=== PATIENT | female | born 1995 | race Caucasian/White ===

== ENCOUNTER 2024-01-22 11:58 | Emergency (ER) | payer SELFPAY ==
[2024-01-22 11:58] VITALS: BP 133/76; PULSE 73; RESP 16; TEMP 36.4; O2SAT 98; BMI 45.0
--- NOTE | 2024-01-22 12:16 | EDS_ITS ---
HPI History of Present Illness Chief Complaint: Back Detail of Chief Complaint: Back pain Informant: patient Narrative Narrative: Patient presents to the emergency department complaint of back pain that started 4 to 5 days ago. She denied any injury. Initially pain was more mild in her low back and then she slipped at work and, caught herself but since then she has been having more discomfort. Pain worse with movement. Denies any falls or trauma otherwise. 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 She denies loss of bowel or bladder function. She denies urinary symptoms. She denies recent illness. PFSH PFS Medical History no medical history Home Medications cyclobenzaprine 10 mg tablet 10 mg PO TID PRN Muscle Spasm #20 TABLETS 01/22/24 [Rx Last Taken Unknown] hydrocodone-acetaminophen 5-325mg 5mg-325mg 1 tab PO Q4H PRN PRN Pain 2 days #10 TABLETS 01/22/24 [Rx Last Taken Unknown] Allergy/AdvReac Type Severity Reaction Status Date / Time bee venom protein (honey bee) Allergy Mild Swelling Verified 01/22/24 12:00 bupropion [From Wellbutrin] Allergy Mild Other Verified 01/22/24 12:00 Social History Smoking Status: Never smoker ROS ROS ED Review of Systems ROS Unobtainable: other Constitutional Constitutional ED: Reports lethargy; Denies chills, fever(s), sweats or weight loss Eyes Eyes: Denies blurry vision, change in vision or diplopia ENT ENT ED: Denies rhinorrhea or sore throat Cardiovascular Cardiovascular: Denies chest pain, orthopnea or racing heartbeat Respiratory/Chest Respiratory/Chest: Denies cough, dyspnea, dyspnea on exertion, orthopnea or sputum Gastrointestinal Gastrointestinal: Denies abdominal pain, diarrhea, nausea or vomiting Genitourinary Genitourinary ED: Denies dysuria, hematuria or urinary frequency Musculoskeletal Musculoskeletal: Reports back pain; Denies arthralgias, myalgias or neck pain Integumentary Denies abscess, Abrasions or rash Neurologic Neurologic: Denies headache(s) or weakness Psychiatric Psychiatric: Denies anxiety, depression or suicidal thoughts Endocrine Endocrinology: Denies polydipsia, polyphagia or polyuria Hematologic/Lymphatic Hematologic/Lymphatic: Denies easy bleeding, easy bruising or lymphadenopathy Allergic/Immunologic Allergic/Immunologic ED: Denies mouth swelling, tongue swelling or urticaria EXAM Physical Exam Const Vital Signs: 01/22/24 11:58 01/22/24 13:01 Temperature 97.5 F L 98 F Temperature Source Temporal Pulse Rate 73 78 Respiratory Rate 16 16 Blood Pressure 133/76 H 126/79 H Blood Pressure Mean 95 94 Pulse Ox 98 98 Oxygen Delivery Method Room Air Positive well nourished and well developed General Appearance ED: well developed and NAD HEENT Reports TM's clear and moist mucous membranes normocephalic and atraumatic; Negative for trauma or tenderness Tympanic Membrane ED: Yes TM's clear Eyes PERRL and EOMs intact bilaterally General Eye ED: Negative for pale conjunctiva or scleral icterus Neck no lymphadenopathy, supple and no JVD General: Negative for tenderness Chest Wall inspection of chest normal and palpation of chest normal Chest: Negative for tenderness Resp normal respiratory effort and clear to auscultation bilaterally Effort and Inspection: Negative for respiratory distress or pain with movement Auscultation: Negative for rhonchi, wheezes or diminished lung sounds Cardio regular rate, regular rhythm, S1 normal heart sound, S2 normal heart sound and no murmurs Peripheral Pulses: pulses 2+ throughout GI normal to inspection, nondistended, normoactive bowel sounds, soft to palpation, non-tender, non-distended and no masses Back/Spine no CVA tenderness and no thoracic nor lumbar tenderness Back/Spine Narrative: No bony tenderness on exam. She has some tenderness palpation over lower lumbar paraspinal musculature and into the PSIS joints and SI joints. Some tenderness over the gluteus molly bilaterally. She has negative straight leg raises. Deep tendon reflexes are plus 2 out of 4 bilaterally at the patella and Achilles. She has normal L5 extension. She has normal sensation to light touch. Extremity normal to inspection General Extremety ED: Negative for edema General Extremity: Negative for edema Neuro oriented x3, CN's II-XII intact bilaterally, no sensory deficits noted and gait normal Sensorium / Orientation: awake, alert, oriented to person, oriented to place and oriented to time Motor Exam: strength 5/5 throughout and strength abnormal Psych mental status grossly normal Skin no rashes or lesions noted and no wounds MDM MDM MDM Narrative Medical decision making narrative: Patient presents with atraumatic back pain that is worse with motion. Suspect likely muscle spasm. No red flag signs or symptoms of cauda equina. Patient will be medicated with Dilaudid and Norflex 1 time in the emergency department and will be given a prescription for Flexeril and a few Jefferson for pain. She will be given work restrictions. Advised to follow-up with primary care physician on-call for no doc within the next 5 to 7 days. Discharge Plan Triage Chief Complaint: Back ED Provider: Massimo Gayle Dx/Rx/DC Orders Clinical Impression: Back pain Instructions: ED Back Pain (Acute or Chronic), ED Back Sprain/Strain Prescriptions: New cyclobenzaprine [cyclobenzaprine] 10 mg tablet 10 mg PO TID PRN (Reason: Muscle Spasm) Qty: 20 0RF hydrocodone-acetaminophen [hydrocodone-acetaminophen] 5-325 mg tablet 1 tab PO Q4H PRN PRN (Reason: Pain) 2 Days Qty: 10 0RF Referrals: Damon Holder MD [Med Staff - Concessions Manager] - 5-7 Days Disposition Disposition: Home, Self Care Discharge Date/Time: 01/22/24 13:04
[2024-01-22] MEDS: Orphenadrine 60 MG/2 ML Ampul IM (12:23)
[2024-01-22] MEDS: HYDROmorphone 1 MG/ML Syringe IM (12:23)
[2024-01-22 13:01] VITALS: BP 126/79; PULSE 78; RESP 16; TEMP 36.6; O2SAT 98
== END 2024-01-22 13:04 | disposition home or self-care (01) ==
PROVIDERS: Emergency Provider Emergency Medicine; Visit Provider Emergency Medicine
DX: M54.9 Dorsalgia, unspecified (principal)
CPT/HCPCS: 96372; 99283

== ENCOUNTER 2024-03-04 20:29 | Emergency (ER) | payer MEDICAID, SELFPAY ==
[2024-03-04 20:32] VITALS: BP 159/94; PULSE 104; RESP 18; TEMP 36.9; O2SAT 99; BMI 44.6
[2024-03-04 21:55] LABS: Color, Urine Yellow (Yellow); Glucose, Dipstick Normal (Normal); Ketone-Dipstick Negative (Negative); Leukocyte Esterase-Dipstick Negative /ul (Negative); Nitrite-Dipstick Negative (Negative); Occult Blood-Urine 10 /ul (Negative); Protein-Dipstick Negative (Negative); Urine Bilirubin Dipstick Negative (Negative); Urine Clarity Clear (Clear); Urine Urobilinogen Normal (Normal)
[2024-03-04 21:56] LABS: Absolute Neutrophil Count 13.2 X10^3/uL (2.0-7.7); Bacteria 0 SEEN /hpf (None Seen); Basophil# 0.07 X10^3/uL; Basophil% 0.4 % (0-1); Eosinophil# 0.21 X10^3/uL; Eosinophils% 1.2 % (0-5); Hematocrit 40.3 % (37-47); Hemoglobin 13.8 g/dL (12.0-15.0); Lymphocyte % 14.9 % (19-41); Mean Corp Hgb Conc 34.2 g/dL (32-36); Mean Corpuscular Hgb 32.6 pg (27.0-32.0); Mean Corpuscular Volume 95.3 fL (81-99); Mean Platelet Vol. 9.6 fl (6.2-12.0); Monocyte# 0.77 X10^3/uL; Monocyte% 4.6 % (0-10); Mucous, Urine 0 SEEN /hpf (<or=2+); NRBC Flagged by Analyzer 0 % (0-5); Neutrophil # 13.21 X10^3/uL (2.7-7.7); Neutrophil % 78.5 % (47-70); Platelet Count 311 K/mm3 (150-450); RBC Distribution Width CV 13.3 % (11.6-14.6); RBC Distribution Width SD 47.1 fl (35.1-43.9); Red Blood Cells-Urine 0 SEEN /hpf (0-5); Red Blood Count 4.23 M/mm3 (4.2-5.4); Squamous Epithelial Cells - UA 0 SEEN /hpf (5-10); White Blood Cells 0 SEEN /hpf (0-5); White Blood Count 16.8 K/mm3 (4.4-11.0)
[2024-03-04 22:04] LABS: Internal QC Validated? YES +Cl - CLEAR BKGD
[2024-03-04 22:05] LABS: Pregnancy, Serum, hCG Quali. POSITIVE Negative
--- NOTE | 2024-03-04 22:05 | RAD_ITS ---
EXAM: XR ABDOMEN, 1 VIEW CLINICAL INDICATION: constipation TECHNIQUE: Frontal supine view of the abdomen/pelvis. COMPARISON: No relevant prior studies available. FINDINGS: LOWER THORAX: No acute pathology. GASTROINTESTINAL TRACT: Unremarkable. Non-obstructive. No bowel or stomach distention. ORGANS: Unremarkable as visualized. No organomegaly. No abnormal calcifications. BONES/JOINTS: No acute pathology. SOFT TISSUES: No acute pathology. RAD/Abdomen Single View IMPRESSION: Non-obstructive bowel gas pattern. Electronically Signed: Ajit Suggs MD at 22:33 EDT ,
[2024-03-04 22:13] LABS: ALB/GLOB Ratio 1.1 RATIO (0.9-2.4); AST(SGOT) 16 U/L (15-37); Alanine Aminotransfer ALT/SGPT 32 U/L (13-56); Albumin, Serum 3.6 g/dL (3.2-5.0); Alkaline Phosphatase 74 U/L (45-117); Anion Gap 5 (5-15); BUN 7 mg/dL (7-18); BUN/Creat Ratio 10.5 RATIO (10-20); Chloride 109 mmol/L (98-107); Creatinine, Serum 0.66 mg/dL (0.55-1.02); EST Glomerular Filtration Rate 111 mL/min (>60); Est Glom Filt Rate - Afr Amer 134 mL/min (>60); Estimated Creatinine Clearance 181.75 ml/min; Globulin 3.2 g/dL (2.2-4.2); Glucose 101 mg/dL (74-106); Protein, Total 6.8 g/dL (6.4-8.2); Sodium Level 138 mmol/L (136-145)
[2024-03-04 22:30] VITALS: BP 131/93; PULSE 109; RESP 20; O2SAT 100
--- NOTE | 2024-03-04 22:35 | US_ITS ---
EXAM: US , TRANSVAGINAL CLINICAL INDICATION: pelvic pain- shoulder pain, constipation TECHNIQUE: Real-time transvaginal obstetrical ultrasound of the maternal pelvis and a first trimester with image documentation. Transvaginal imaging was used for better evaluation of the fetus and adnexa. COMPARISON: No relevant prior studies available. FINDINGS: GESTATION: Yolk sac not identified. No gestational sac identified. PLACENTA/AMNIOTIC FLUID: Cannot be adequately evaluated due to the early gestational age. UTERUS/CERVIX: Unremarkable. No myometrial mass. The uterus measures 7.8 x 3.1 x 3.3 cm. The endometrial stripe measures 0.5 cm in thickness. OVARIES: Right ovary not visualized. Left ovary not visualized. FREE FLUID: Small amount of fluid in the pelvic cul-de-sac. US/Transvaginal w/Preg US IMPRESSION: No intrauterine . Small amount of fluid in the pelvic cul-de-sac. No specific adnexal mass identified. Ectopic not excluded. Electronically Signed: Ajit Suggs MD at 23:50 EDT ,
--- NOTE | 2024-03-04 22:36 | EX.ED.DYSGE1 ---
HPI History of Present Illness Chief Complaint: Abd Pain Informant: patient and spouse/S.O. Narrative Narrative: 28-year-old female presenting to the emergency room chief complaint of difficulty urinating having bowel movements. Patient states she was seen about a month ago for low back pain. She has been up going to work. 2 weeks ago she began to experience constipation. She states that several days ago she had a few days where she had small bowel movements. She urinated this morning but states today and into this evening she has not urinated. She denies any dysuria frequency hematuria. No fevers. She states that she had a bowel blockage in the past. In exploring this further she is not admitted to the hospital. She states she was given medicine to help her have a bowel movement. She did not have a nasogastric tube. She has had laparoscopy for endometriosis and a D&C for a blighted ovum. (G1, P0). She notes she is Rh-. Last menstrual cycle was a about 3 weeks ago. She notes that it was 6 days in duration which is abnormal for her. Typically she bleeds for 5 days. She describes the pain as in the lower abdomen suprapubic and near her ovaries. It is worse with movement and touch. She denies any current vaginal bleeding or discharge. [facility] Medical History Bowel obstruction Brain tumor Endometriosis Home Medications NK 03/05/24 [History Last Taken Unknown] Allergy/AdvReac Type Severity Reaction Status Date / Time bee venom protein (honey bee) Allergy Mild Swelling Verified 03/04/24 20:31 bupropion [From Wellbutrin] Allergy Mild Other Verified 03/04/24 20:31 Social History Smoking Status: Current every day smoker tobacco type: cigarettes ROS ROS ED Constitutional Constitutional ED: Denies chills or weight loss Eyes Eyes: Denies change in vision or diplopia ENT ENT ED: Denies ear pain, rhinorrhea or sore throat Cardiovascular Cardiovascular: Denies chest pain, orthopnea, palpitations or racing heartbeat Respiratory/Chest Respiratory/Chest: Denies cough, dyspnea or orthopnea Gastrointestinal Gastrointestinal: Reports abdominal pain and constipation; Denies diarrhea, nausea or vomiting Genitourinary Genitourinary ED: Reports other Details: Reports inability urinate ; Denies dysuria, hematuria or urinary frequency Musculoskeletal Musculoskeletal: Denies arthralgias or myalgias Integumentary Denies abscess or rash Neurologic Neurologic: Denies headache(s) or weakness Psychiatric Psychiatric: Denies anxiety, depression, suicidal ideation or suicidal thoughts Endocrine Endocrinology: Denies polydipsia, polyphagia or polyuria Allergic/Immunologic Allergic/Immunologic ED: Denies mouth swelling, tongue swelling or urticaria EXAM Physical Exam Const Vital Signs: 03/04/24 20:32 03/04/24 22:30 03/05/24 00:00 Temperature 98.5 F Temperature Source Temporal Pulse Rate 104 H 109 H 122 H Pulse Rate [Lying] Pulse Rate [Sitting (for 1 minute prior to obtaining)] Pulse Rate [Standing (for 1 minute prior to obtaining)] Respiratory Rate 18 20 H 20 H Blood Pressure 159/94 H 131/93 H 113/82 H Blood Pressure [Lying] Blood Pressure [Sitting (for 1 minute prior to obtaining)] Blood Pressure [Standing (for 1 minute prior to obtaining)] Blood Pressure Mean 115 105 92 Blood Pressure Mean [Lying] Blood Pressure Mean [Sitting (for 1 minute prior to obtaining)] Blood Pressure Mean [Standing (for 1 minute prior to obtaining)] Pulse Ox 99 100 98 Oxygen Delivery Method Room Air Room Air 03/05/24 01:16 03/05/24 02:00 03/05/24 02:10 Temperature 97.5 F L Temperature Source Pulse Rate 99 88 Pulse Rate [Lying] 112 H Pulse Rate [Sitting (for 1 minute prior to obtaining)] 115 H Pulse Rate [Standing (for 1 minute prior to obtaining)] 130 H Respiratory Rate 16 16 Blood Pressure 117/71 116/74 Blood Pressure [Lying] 109/78 Blood Pressure [Sitting (for 1 minute prior to obtaining)] 118/92 H Blood Pressure [Standing (for 1 minute prior to obtaining)] 130/99 H Blood Pressure Mean 86 88 Blood Pressure Mean [Lying] 88 Blood Pressure Mean [Sitting (for 1 minute prior to obtaining)] 100 Blood Pressure Mean [Standing (for 1 minute prior to obtaining)] 109 Pulse Ox 99 99 Oxygen Delivery Method Positive well nourished, well developed and obese General Appearance ED: well developed Nutritional Appearance: obese HEENT Reports normocephalic, head/scalp atraumatic and moist mucous membranes Eyes PERRL and EOMs intact bilaterally Neck no lymphadenopathy, supple and no JVD Resp normal respiratory effort and clear to auscultation bilaterally Cardio regular rate, regular rhythm and no murmurs GI Inspection: Negative for abdominal distention Auscultation: normoactive bowel sounds Palpation: soft, tender LLQ, RLQ, suprapubic and other (Out of proportion to examination. Reported exquisite tenderness with lifting up of pannus.) and guarding Back/Spine no CVA tenderness and normal ROM Extremity normal to inspection General Extremety ED: Negative for edema General Extremity: Negative for edema Neuro oriented x3 and CN's II-XII intact bilaterally Sensorium / Orientation: alert Motor Exam: strength 5/5 throughout Psych mental status grossly normal Mood & Affect: Negative for depressed or tearful Skin no rashes or lesions noted and no wounds MDM MDM MDM Narrative Medical decision making narrative: Patient was bladder scanned by nursing he reports 350 cc and she was straight cathed. Urine specimen appears normal. White count 16.8 hemoglobin 13.8 platelet count 311. BMP within normal limits except for chloride of 109. Normal liver panel. Serum test is positive. Quantitative hCG was 1809. My independent interpretation of the abdominal x-rays is nonobstructive pattern. No fecal impaction noted. Patient was taken for pelvic ultrasound. Only trans abdominal ultrasound was able to be performed because the patient noted too much pain on transvaginal probe to be tolerated. Results of this demonstrate no obvious intrauterine . The right and left ovaries were unable to be visualized and there was small amount of fluid in the cul-de-sac. No obvious adnexal masses seen. Using shared decision making decision not to proceed with a pelvic examination was made due to the patient's discomfort. With a quantitative hCG of 1809 suggestive of very early and a lack of vaginal bleeding and no localizing right or left area of tenderness I think a ruptured ectopic is unlikely. As discussed with the patient we are limited in what we can do. She would like to avoid CT imaging if at all possible. The patient is not orthostatic positive. She was tachycardic up into the point of discharge. She is able to walk without any difficulty. I did discuss the case with Dr. Escoto from [facility]. I specifically reviewed the pertinent positive labs and the body and impression of the ultrasound. All questions were answered and no further information requested. The plan is for repeat quantitative hCG in 48 hours with [facility] follow-up. Patient states she was able to urinate here in the department. Patient understands return instructions as well as follow-up. No further questions for this physician. History & Record Review Discussion w/independent historian: Patient and Significant other Lab Data Attestation: I reviewed the patient's lab results. Labs: Laboratory Results - last 24 hr 03/04/24 03/04/24 21:45 22:40 WBC 16.8 H RBC 4.23 Hgb 13.8 Hct 40.3 MCV 95.3 MCH 32.6 H MCHC 34.2 RDW Std Deviation 47.1 H RDW Coeff of Suzanne 13.3 Plt Count 311 MPV 9.6 Immature Gran % (Auto) 0.400 Neut % (Auto) 78.5 H Lymph % (Auto) 14.9 L Cabell % (Auto) 4.6 Eos % (Auto) 1.2 Baso % (Auto) 0.4 Absolute Neuts (auto) 13.2 H Absolute Lymphs (auto) 2.50 Nucleated RBC % 0 Sodium 138 Potassium 4.0 Chloride 109 H Carbon Dioxide 24.0 Anion Gap 5 BUN 7 Creatinine 0.66 Estim Creat Clear Calc 181.75 Est GFR (MDRD) Af Amer 134 Est GFR (MDRD) Non-Af 111 BUN/Creatinine Ratio 10.5 Glucose 101 Calcium 9.0 Total Bilirubin 0.30 AST 16 ALT 32 Alkaline Phosphatase 74 Total Protein 6.8 Albumin 3.6 Globulin 3.2 Albumin/Globulin Ratio 1.1 HCG, Quant 1807 H Serum , Qual POSITIVE H Urine Color Yellow Urine Clarity Clear Urine pH 6.0 Ur Specific Buchanan 1.020 Urine Protein Negative Urine Glucose (UA) Normal Urine Ketones Negative Urine Occult Blood 10 H Urine Nitrite Negative Urine Bilirubin Negative Urine Urobilinogen Normal Ur Leukocyte Esterase Negative Urine RBC 0 SEEN Urine WBC 0 SEEN Ur Squamous Epith Cells 0 SEEN Urine Bacteria 0 SEEN Urine Mucus 0 SEEN Blood Type A NEGATIVE Radiography Diagnostic Testing: Clinical Impression(s) from Imaging Studies KUB X-Ray 03/04/24 22:05 IMPRESSION: Non-obstructive bowel gas pattern. Electronically Signed: Ajit Suggs MD at 22:33 EDT , Obstetrics Ultrasound 03/04/24 22:35 IMPRESSION: No intrauterine . Small amount of fluid in the pelvic cul-de-sac. No specific adnexal mass identified. Ectopic not excluded. Electronically Signed: Ajit Suggs MD at 23:50 EDT , Discharge Plan Triage Chief Complaint: Abd Pain ED Provider: Titi Woods Dx/Rx/DC Orders Clinical Impression: Pelvic pain, First trimester Instructions: 1st Trimester, ED Abdominal Pain, Early Prescriptions: No Action NK Primary Care Provider: Care Physician,No Primary Referrals: Lori Tipton MD [Med Staff - Active Staff] - 2 Days (for repeat examination and repeat blood work) Care Physician,No Primary [Primary Care Provider] - Disposition Disposition: Home, Self Care Discharge Date/Time: 03/05/24 02:10
[2024-03-04 23:07] LABS: hCG Titer Quant., Serum 1807 mIU/mL (1-3)
[2024-03-05] VITALS: BP 113/82; PULSE 122; RESP 20; O2SAT 98
[2024-03-05 01:16] VITALS: BP 109/78; BP 118/92; BP 130/99; PULSE 112; PULSE 115; PULSE 130
[2024-03-05 02:00] VITALS: BP 117/71; PULSE 99; RESP 16; O2SAT 99
[2024-03-05 02:10] VITALS: BP 116/74; PULSE 88; RESP 16; TEMP 36.4; O2SAT 99
== END 2024-03-05 02:10 | disposition home or self-care (01) ==
PROVIDERS: Emergency Provider Emergency Medicine; Visit Provider Emergency Medicine
DX: O26.891 Other specified pregnancy related conditions, first trimester (principal); O99.331 Smoking (tobacco) complicating pregnancy, first trimester; O99.211 Obesity complicating pregnancy, first trimester; R10.2 Pelvic and perineal pain; F17.210 Nicotine dependence, cigarettes, uncomplicated; Z3A.00 Weeks of gestation of pregnancy not specified
CPT/HCPCS: 51702; 74018; 76817; 80053; 81001; 84702; 84703; 85025; 86900; 86901; 99284; A4216

== ENCOUNTER 2024-03-05 20:09 | Observation (INO) | payer SELFPAY ==
[2024-03-05 20:09] VITALS: BP 143/89; PULSE 125; RESP 16; TEMP 36.3; O2SAT 98; BMI 44.5
--- NOTE | 2024-03-05 20:55 | US_ITS ---
We are attempting to reach an attending provider to discuss findings. An addendum with communication details will be sent when the communication is complete. EXAM: US , TRANSVAGINAL CLINICAL INDICATION: Pelvic pain-bleeding. TECHNIQUE: Real-time transvaginal obstetrical ultrasound of the maternal pelvis and a first trimester with image documentation. Transvaginal imaging was used for better evaluation of the fetus and adnexa. COMPARISON: March 04, 2024 . No IUP identified yesterday. FINDINGS: UTERUS/CERVIX: 10.5 cm x 2.9 cm x 4.6 cm with a 4 mm endometrial stripe. No IUP identified. OVARIES: There is a thick-walled complex cystic structure 3.1 cm x 1.6 cm x 3.2 cm in the expected region of the left ovary. Right ovary 2.7 cm x 1.6 cm x 2 cm with documented blood flow. BLADDER: Mildly distended, 165 cc. FREE FLUID: There appears to be moderate-marked complex nonvascular material posterior to the uterus and in the left adnexa, not fully measured but roughly 7.6 cm x 3.4 cm x 3.4 cm in the left adnexal component, component extending posterior to the uterus not measured. This is not obviously intraluminal contents within bowel. Mild more simple-appearing almost anechoic fluid in the right adnexa adjacent to the right ovary but also some isoechoic suspected material in the right adnexa. US/Transvaginal w/Preg US IMPRESSION: No IUP identified. Moderate amount of complex intermediate echogenicity material posterior to the uterus and extending into the left greater than right adnexa. Nonvisualized normal left ovary. Thick-walled cystic structure in the left adnexa. High probability of ruptured ectopic and intrapelvic hemorrhage. Electronically Signed: Irma Sr MD at 22:39 EDT ,
[2024-03-05] MEDS: 0.9% Normal Saline (1000mL) 1,000 ML 1000 ML IV (21:20)
[2024-03-05] MEDS: Morphine 4 MG/ML Syringe IV (21:20)
[2024-03-05 21:24] LABS: Absolute Lymphocyte Count 2.71 X10^3/uL (0.83-4.51); Absolute Neutrophil Count 11.2 X10^3/uL (2.0-7.7); Basophil# 0.06 X10^3/uL; Basophil% 0.4 % (0-1); Eosinophil# 0.11 X10^3/uL; Eosinophils% 0.7 % (0-5); Hematocrit 33.8 % (37-47); Hemoglobin 11.1 g/dL (12.0-15.0); Lymphocyte # 2.71 X10^3/ul (0.83-4.51); Lymphocyte % 18.1 % (19-41); Mean Corp Hgb Conc 32.8 g/dL (32-36); Mean Corpuscular Hgb 31.9 pg (27.0-32.0); Mean Corpuscular Volume 97.1 fL (81-99); Monocyte# 0.83 X10^3/uL; Monocyte% 5.5 % (0-10); NRBC Flagged by Analyzer 0 % (0-5); Neutrophil # 11.22 X10^3/uL (2.7-7.7); POSITIVE COUNT YES; Platelet Count 268 K/mm3 (150-450); RBC Distribution Width CV 13.2 % (11.6-14.6); RBC Distribution Width SD 47.6 fl (35.1-43.9); Red Blood Count 3.48 M/mm3 (4.2-5.4)
[2024-03-05 21:39] LABS: Differential Indicated SCAN CRITERIA MET
[2024-03-05 21:46] LABS: Anion Gap 1 (5-15); BUN 9 mg/dL (7-18); BUN/Creat Ratio 13.9 RATIO (10-20); Calcium,Total 8.7 mg/dL (8.5-10.1); Chloride 107 mmol/L (98-107); Creatinine, Serum 0.65 mg/dL (0.55-1.02); EST Glomerular Filtration Rate 114 mL/min (>60); Est Glom Filt Rate - Afr Amer 138 mL/min (>60); Estimated Creatinine Clearance 184.47 ml/min; Glucose 103 mg/dL (74-106); Potassium 3.8 mmol/L (3.5-5.1); Sodium Level 137 mmol/L (136-145)
--- NOTE | 2024-03-05 22:00 | EDS_ITS ---
HPI HPI - Female History of Present Illness Chief Complaint: Vag Bleeding Informant: patient Pain Pain: Positive for Pelvic Pain Onset: Yesterday Context: Gradual Onset Timing: Continuous and Waxes and wanes Quality: Positive for Cramping and Aching Location: RLQ, LLQ and Suprapubic Worsened by: - (Palpation) Relieved by: Remaining Still Bleeding Issue: Positive for Vaginal bleeding Onset: Today Context: Sudden Onset Timing: Continuous Current Severity: Mild Associated Symptoms Associated Symptoms: Negative for Dysuria, Frequency or Hematuria Test: Positive P: 0 Ab: 1 Narrative Narrative: Patient presents with vaginal bleeding that began today. Patient states she was seen here yesterday for pelvic pain. Patient states she has been having persistent cramping that waxes and wanes. Patient states it is a constant ache but cramping at times. Patient states it is mainly over the lower abdomen. Patient states that she started having some vaginal bleeding tonight. Patient states she was told to come back in if she had any worsening pain or vaginal bleeding. PFSH PFS Medical History (Updated 03/05/24 @ 23:[address] Damon Bettencourt DO) Bowel obstruction Brain tumor Endometriosis Home Medications NK 03/05/24 [History Last Taken Unknown] Allergy/AdvReac Type Severity Reaction Status Date / Time bee venom protein (honey bee) Allergy Mild Swelling Verified 03/05/24 20:11 bupropion [From Wellbutrin] Allergy Mild Other Verified 03/05/24 20:11 Surgical History Hx of dilation and curettage Hx of laparoscopy Social History housing: apartment Smoking Status: Current every day smoker tobacco type: cigarettes ROS ROS ED Constitutional Constitutional ED: Denies chills or fever(s) Eyes Eyes: Denies blurry vision or change in vision ENT ENT ED: Denies rhinorrhea or sore throat Cardiovascular Cardiovascular: Reports chest pain; Denies palpitations Respiratory/Chest Respiratory/Chest: Denies cough or dyspnea Gastrointestinal Gastrointestinal: Reports abdominal pain; Denies nausea or vomiting Genitourinary Genitourinary ED: Denies dysuria or hematuria Musculoskeletal Musculoskeletal: Denies back pain or neck pain Integumentary Denies abscess or rash Neurologic Neurologic: Denies headache(s) or weakness Allergic/Immunologic Allergic/Immunologic ED: Denies mouth swelling or urticaria EXAM Physical Exam Const Vital Signs: 03/05/24 20:09 03/05/24 22:09 03/06/24 00:00 Temperature 97.4 F L 98.1 F Temperature Source Temporal Oral Pulse Rate 125 H 101 H 69 Respiratory Rate 16 16 18 Blood Pressure 143/89 H 118/81 H Blood Pressure Mean 107 93 Blood Pressure Source Monitor Blood Pressure Position Semi-Fowlers Blood Pressure Location Left Arm Pulse Ox 98 99 97 Oxygen Delivery Method Room Air Room Air Positive well nourished, well developed and obese General Appearance ED: well developed and NAD Nutritional Appearance: obese HEENT Reports moist mucous membranes Neck supple and no JVD Resp normal respiratory effort and clear to auscultation bilaterally Cardio regular rate and regular rhythm GI soft to palpation Palpation: tender LLQ, RLQ and suprapubic; Negative for guarding Extremity full ROM Neuro oriented x3, CN's II-XII intact bilaterally and no sensory deficits noted Sensorium / Orientation: alert Motor Exam: strength 5/5 throughout Psych mental status grossly normal MDM MDM MDM Narrative Medical decision making narrative: Differential diagnosis includes spontaneous miscarriage, ectopic , urinary tract infection, and threatened miscarriage. CBC will be obtained to assess for leukocytosis and anemia. Basic metabolic profile will be obtained to assess for electrolyte abnormality and renal function. Quantitative hCG will be obtained to assess for . Pelvic ultrasound will be obtained to assess for ectopic . Lab Data Attestation: I reviewed the patient's lab results. Lab results narrative: CBC was reviewed. There is a leukocytosis of 15.0. There is a mild anemia with a hemoglobin of 11.1 and hematocrit of 33.8. This was slightly decreased from yesterday's results. Basic metabolic profile was reviewed and was within normal limits. Quantitative hCG was reviewed and was 1441. This was decreased from yesterday's result. Labs: Laboratory Results - last 24 hr 03/05/24 21:15 WBC 15.0 H RBC 3.48 L Hgb 11.1 L Hct 33.8 L MCV 97.1 MCH 31.9 MCHC 32.8 RDW Std Deviation 47.6 H RDW Coeff of Suzanne 13.2 Plt Count 268 MPV 10.0 Immature Gran % (Auto) 0.300 Neut % (Auto) 75.0 H Lymph % (Auto) 18.1 L [place] % (Auto) 5.5 Eos % (Auto) 0.7 Baso % (Auto) 0.4 Absolute Neuts (auto) 11.2 H Absolute Lymphs (auto) 2.71 Nucleated RBC % 0 Differential Comment SCANNED Sodium 137 Potassium 3.8 Chloride 107 Carbon Dioxide 29.0 Anion Gap 1 L BUN 9 Creatinine 0.65 Estim Creat Clear Calc 184.47 Est GFR (MDRD) Af Amer 138 Est GFR (MDRD) Non-Af 114 BUN/Creatinine Ratio 13.9 Glucose 103 Calcium 8.7 HCG, Quant 1441 H Radiography Diagnostic Testing: Clinical Impression(s) from Imaging Studies Obstetrics Ultrasound 03/05/24 20:55 IMPRESSION: No IUP identified. Moderate amount of complex intermediate echogenicity material posterior to the uterus and extending into the left greater than right adnexa. Nonvisualized normal left ovary. Thick-walled cystic structure in the left adnexa. High probability of ruptured ectopic and intrapelvic hemorrhage. Electronically Signed: Irma Sr MD at 22:39 EDT , ADDENDUM: 03/05/249 IMPRESSION: No IUP identified. Moderate amount of complex intermediate echogenicity material posterior to the uterus and extending into the left greater than right adnexa. Nonvisualized normal left ovary. Thick-walled cystic structure in the left adnexa. High probability of ruptured ectopic and intrapelvic hemorrhage. N.B. : The above Results were Read Back by Irma Sr MD to Damon Bettencourt DO, and understanding confirmed on 03/05/2024 22:42:53 (ET). Electronically Signed: Irma Sr MD at 22:39 EDT , Transvaginal pelvic ultrasound was obtained. There is no intrauterine noted. There is a moderate amount of complex intermediate echogenicity material posterior to the uterus and extending into the left greater than right adnexa. There is a nonvisualized left ovary. There is a thick-walled cystic structure in the left adnexa. This is likely ruptured ectopic and intrapelvic hemorrhage. This was interpreted by the radiologist and was also independently reviewed by myself. Treatment and Re-Evaluation Narrative: Patient was given IV fluids and morphine. Case was discussed with Dr. Escoto from [employer]. He will be in to evaluate the patient and take the patient to the operating room. Patient was advised of her results. Patient declines further analgesics at this time. Discharge Plan Dx/Rx/DC Orders Clinical Impression: Hemoperitoneum due to rupture of left tubal ectopic , Pelvic pain, First trimester Disposition Disposition: Acute Care Hospital [facility]
[2024-03-05 22:05] LABS: Differential Comment SCANNED; hCG Titer Quant., Serum 1441 mIU/mL (1-3)
[2024-03-05 22:09] VITALS: PULSE 101; RESP 16; O2SAT 99
--- NOTE | 2024-03-05 23:47 | PCM.HP.OB ---
HPI - General General Date of Admission: 03/05/24 Date of Service: 03/05/24 Chief Complaint: Ruptured Ectopic HPI Narrative NAN BEST, is a 28 F G2, P0 Ab1 at about 5 to 6 weeks gestation who presents to the emergency room with lower abdominal pain possibly more pronounced on the left. This started a few days ago and has waxed and waned. She presented to the emergency room last evening and her quantitative hCG was about 1800 but the patient declined vaginal ultrasound. Transabdominal ultrasound did not confirm ectopic . Given that the pain was minimal the patient was discharged to home last evening with instructions to follow-up for repeat quantitative hCG in 2 days. This afternoon her bleeding became more pronounced and she represented to the emergency room. Pain is now rated 5 out of 10 and persisting. At her visit this evening the patient consented to a vaginal ultrasound which showed a likely ruptured ectopic. Patient has a history of a blighted ovum about 2 years ago and denies any similar type of pain during that . Maternal Data Information Gestational age: 5 to 6 weeks [facility] Medical History (Updated 03/05/24 @ 23:[address] Damon Bettencourt DO) Bowel obstruction Brain tumor Endometriosis Home Medications NK 03/05/24 [History Last Taken Unknown] Allergy/AdvReac Type Severity Reaction Status Date / Time bee venom protein (honey bee) Allergy Mild Swelling Verified 03/05/24 20:11 bupropion [From Wellbutrin] Allergy Mild Other Verified 03/05/24 20:11 Surgical History Hx of dilation and curettage Hx of laparoscopy Social History housing: apartment Smoking Status: Current every day smoker tobacco type: cigarettes History Addt'l History: Blighted ovum in 2021 for which she had a D&C ROS Constitutional Constitutional: Reports systems reviewed and no addt'l complaints, except as documented Respiratory/Chest Respiratory/Chest: Reports systems reviewed and no addt'l complaints, except as documented Gastrointestinal Gastrointestinal: Reports systems reviewed and no addt'l complaints, except as documented Genitourinary Genitourinary: Reports systems reviewed and no addt'l complaints, except as documented Musculoskeletal Musculoskeletal: Reports systems reviewed and no addt'l complaints, except as documented Vital Signs Vital Signs Vital Signs: 03/05/24 20:09 03/05/24 22:09 Temperature 97.4 F L Temperature Source Temporal Pulse Rate 125 H 101 H Respiratory Rate 16 16 Blood Pressure 143/89 H Blood Pressure Mean 107 Pulse Ox 98 99 Oxygen Delivery Method Room Air Weight Weight: 293 lb Body Mass Index (BMI) 44.5 Physical Exam Const alert, oriented x3 and no apparent distress General Appearance: cooperative Exam Limitations: no limitations Nutritional Appearance: obese HEENT normocephalic Eyes PERRL and EOMs intact bilaterally Neck full ROM Resp normal respiratory effort, no retractions and clear to auscultation bilaterally Cardio regular rate and regular rhythm GI GI Narrative: Tenderness to palpation left side below umbilicus Palpation: rebound tenderness present Back/Spine normal ROM Extremity normal to inspection, full ROM and no clubbing, cyanosis or edema Psych mental status grossly normal, affect normal, speech normal and activity/motor behavior normal Labs Labs Labs: Blood Type A NEGATIVE Hct 33.8 % (37-47) L Hgb 11.1 g/dL (12.0-15.0) L Obstetrics Ultrasound Assessment & Plan (1) Hemoperitoneum due to rupture of left tubal ectopic : PLAN: Ruptured ectopic likely on left side. Discussed treatment options and plan to proceed with laparoscopic ectopic removal with possible salpingectomy probably left salpingectomy. We also discussed the possibility of bleeding, infection, and injury to surrounding structures such as bowel and bladder. Also discussed the possibility of laparotomy should bleeding be uncontrollable or injury occurred to vital structures during the procedure. The possibility of needing a blood transfusion was also discussed and patient consents to this if needed. All questions were answered from the patient and her and we consider the patient well-informed.
[2024-03-06] VITALS (11 sets, daily range): BP systolic 113–138; BP diastolic 66–92; PULSE 69–112; RESP 16–22; TEMP 36.3–36.7; O2SAT 92–98; BMI 44.5; BMI 45.3
[2024-03-06] MEDS: Lubricating Jelly 60 GM Tube 30 GM (00:20)
[2024-03-06] MEDS: Cefazolin 3 GM in 0.9% Normal Saline (100mL Bag) 100 ML IV (00:29)
--- NOTE | 2024-03-06 00:36 | ED.RN ---
REPORT CALLED TO SURGERY NURSE ELIS AT THIS TIME
[2024-03-06] MEDS: Ropivacaine 0.5% 30 ML Vial (00:53)
--- NOTE | 2024-03-06 01:00 | FAL_PTH ---
PATIENT: NAN BEST LOC: MS3 U#:[id number] AGE/SX: 28/F ROOM: DC316 RE03/06/[address]: Dr. Steve Escoto MD : 1995 BED: 1 DIS: 03/06/2024 SPEC #: [id number] RECD: 03/06/24 09:38 STATUS: VASU REMarie #: [id number] SOO: 03/06/24 01:[address]: Steve Escoto DEPT: SURGICAL PATHOLOGY RECD BY: Jasmin Fierro ENTERED: 03/06/24 13:26 SP TYPE: ECTOPIC OTHR DR: No Primary Care Phys Tissues: ECTOPIC PREG Procedures: Surgery Specimen Level IV HEADER OPERATION: Laparoscopic removal ectopic PRE-OP DIAGNOSIS: Ectopic TISSUE SUBMITTED: Left fallopian tube and ectopic MICROSCOPIC DIAGNOSIS Left fallopian tube, salpingectomy: Chorionic villi, decidualized stroma and trophoblastic cells consistent with intra tubal of . AM: 03/07/24 MICROSCOPIC DESCRIPTION Slides are reviewed. GROSS DESCRIPTION Received in fixative is one container labeled with the patient's name and designated Left fallopian tube and ectopic. The specimen consists of a fallopian tube measuring 8.0cm in length and 0.5 to 2.0cm in diameter. The fimbrial ends are identified. Focal area of rupture with clots are noted in the middle portion of the fallopian tube. Also present in the container are multiple fragments of blood clots measuring in aggregate 5.5 x 2.5 x 1.5cm. Section of the fallopian tube reveal multiple blood clots. The lumen is filled with multiple blood clots. No obvious tissue is identified. Fern Cutter sections are submitted in four cassettes as follows: 1-3- fallopian tube, 4- blood clots RAUL/ 03/06/24 TC:5 CPT: 04567
--- NOTE | 2024-03-06 01:58 | PCM.OPRPT ---
Problems Associated Problem List Diagnoses (1) Hemoperitoneum due to rupture of left tubal ectopic : Report of Operation Date of Procedure: 03/06/24 Pre-Operative Diagnosis: Ruptured Left Ectopic Post-Operative Diagnosis: Ruptured Left Ectopic Surgery/Procedure Performed:: Laparoscopic Left Salpingectomy, Removal of Ectopic , Evacuation of Hematoperitoneum Description of Surgical Findings:: Ruptured and bleeding left ectopic , approximately 400 to 500 cc of clotted blood in the abdominal cavity, normal-appearing right fallopian tube, normal-appearing ovaries, normal-appearing uterus. Surgeon: Steve Escoto curriculum development specialist: Eloisa Andrews Type of Anesthesia: General Anesthesiologist: Damon Titus Specimen's removed: Left fallopian tube and ectopic . Estimated Blood Loss (mL): 450 cc Fluids Replaced: Crystalloid Description of Procedure: Surgeon: Steve Escoto MD, FACOG Anesthesia: Damon Titus MD Type of Anesthesia: General Endotracheal Pre-Op Diagnosis: Ruptured Left Ectopic Postoperative diagnosis: Ruptured left ectopic Procedure: Laparoscopic Left Salpingectomy and Evacuation of Abdominal Blood. Findings: 8-9 cm uterus with normal appearing fallopian tubes and ovaries except for the left ectopic which was approximately 3 to 4 cm in diameter and bleeding. Normal-appearing right ovary and tube. Approximately 450 cc of peritoneal blood present from the bleeding ectopic. No bleeding from the laparoscopic procedure itself. Indications: This is a 28year old G2, P0 Ab1 patient who has the above diagnosis. Patient has been counseled regarding the risk and indications of this procedure including the possibly of bleeding, infection, injury to surrounding structures, blood transfusion, and laparotomy. All questions were answered Procedure: The patient was taken to the operating room where after induction of general anesthesia, she was placed in the dorsolithotomy position and prepped and draped in the usual sterile fashion. The bladder was drained of approximately 100 cc of clear yellow urine with a catheter. Anterior cervix was grasped with the tenaculum and Conn cannula was placed; attention was turned toward the laparoscopic portion of the procedure. Approximately 25 cc of half percent ropivacaine was injected subumbilically suprapubically and midway between. A 5 mm bladeless trocar was placed subumbilically and intraperitoneal placement confirmed. After CO2 insufflation was complete, a 10/12 mm bladeless trocar was introduced suprapubically. The above findings were noted. A 5 mm port was then placed midway between these 2 ports for tubal manipulation. Each fallopian tube was identified to its fimbriated end and an Enseal device was used to ligate the left fallopian tube containing the ectopic . The peritoneal cavity and upper abdomen were examined and noted to be normal except for the blood from the ectopic which was suctioned and irrigated removing approximately 90%. Photographs were taken. Laparoscopic instruments with as much CO2 gas as possible were removed and incisions were closed with interrupted 4-0 Monocryl suture. Steri-Strips and OpSite's placed across the incisions. Conn cannula was removed from the vagina. Patient tolerated procedure well was taken to recovery room in satisfactory condition sponge instrument and needle counts were all reportedly correct. Estimated blood loss for the case was minimal from the laparoscopy but approximately 450 cc of blood was removed from the lower pelvis which was clotted blood from the bleeding ectopic. Specimens to pathology was left fallopian tube and ectopic . Grafts/Implants Used: None Complications None Admit VTE Documentation VTE Present on Admission: Yes VTE Mechan Device Prophylaxis: SCD's
[2024-03-06] MEDS: Ketorolac 30 MG/ML Syringe IV ×2 (03:19→10:22)
[2024-03-06] MEDS: Acetaminophen 500 MG Tablet 1000 MG PO ×2 (03:23→08:31)
[2024-03-06] MEDS: 0.9% Saline Lock 10 ML Syringe IV ×2 (03:25→10:23)
[2024-03-06] MEDS: Docusate Sodium 100 MG Capsule PO (08:30)
--- NOTE | 2024-03-06 10:34 | DS.PCM_ITS ---
Providers Date of Admission: 03/06/24 Date of Discharge: 03/06/24 Primary Care Physician: No Primary Care Phys Reason For Visit: LAPARASCOPIC, REMOVAL ECTOPIC Diagnosis Discharge Diagnosis (1) Hemoperitoneum due to rupture of left tubal ectopic : Status: Acute Code(s): O00.102 - Left tubal without intrauterine ; K66.1 - Hemoperitoneum Medications at Discharge Home Medications NK 03/05/24 Hospital Course Summary of Care Provided Hospital Course: Patient presented with ruptured ectopic . Laparoscopic left salpingectomy and ectopic removal along with blood and pelvis were removed without complication. Patient's surgery was completed approximately 2 AM today. She was observed overnight and is doing well ready for discharge. Not requiring any narcotic pain medication postoperatively. Physical Exam Narrative Afebrile with stable vital signs. No blood on OpSite or Steri-Strips. Op sites were removed. Appropriate tenderness. Minimal vaginal bleeding reported. Weight / BMI Weight Weight: 298 lb 8.094 oz Body Mass Index (BMI) 45.3 ABG / Lab / Microbiology Data 03/05/24 21:15 03/05/24 21:15 Laboratory: Laboratory Results - last 24 hr 03/05/24 21:15: WBC 15.0 H, RBC 3.48 L, Hgb 11.1 L, Hct 33.8 L, MCV 97.1, MCH 31.9, MCHC 32.8, RDW Std Deviation 47.6 H, RDW Coeff of Suzanne 13.2, Plt Count 268, MPV 10.0, Immature Gran % (Auto) 0.300, Neut % (Auto) 75.0 H, Lymph % (Auto) 18.1 L, [place] % (Auto) 5.5, Eos % (Auto) 0.7, Baso % (Auto) 0.4, Absolute Neuts (auto) 11.2 H, Absolute Lymphs (auto) 2.71, Nucleated RBC % 0, Differential Comment SCANNED, Sodium 137, Potassium 3.8, Chloride 107, Carbon Dioxide 29.0, Anion Gap 1 L, BUN 9, Creatinine 0.65, Estim Creat Clear Calc 184.47, Est GFR (MDRD) Af Amer 138, Est GFR (MDRD) Non-Af 114, BUN/Creatinine Ratio 13.9, Glucose 103, Calcium 8.7, HCG, Quant 1441 H Radiography Diagnostic Testing: Radiology Impression Obstetrics Ultrasound 03/05/24 20:55 IMPRESSION: No IUP identified. Moderate amount of complex intermediate echogenicity material posterior to the uterus and extending into the left greater than right adnexa. Nonvisualized normal left ovary. Thick-walled cystic structure in the left adnexa. High probability of ruptured ectopic and intrapelvic hemorrhage. Electronically Signed: Irma Sr MD at 22:39 EDT , ADDENDUM: 03/05/24 2249 IMPRESSION: No IUP identified. Moderate amount of complex intermediate echogenicity material posterior to the uterus and extending into the left greater than right adnexa. Nonvisualized normal left ovary. Thick-walled cystic structure in the left adnexa. High probability of ruptured ectopic and intrapelvic hemorrhage. N.B. : The above Results were Read Back by Irma Sr MD to Damon Bettencourt DO, and understanding confirmed on 03/05/2024 22:42:53 (ET). Electronically Signed: Irma Sr MD at 22:39 EDT , D/C Instructions Please Follow Up With: Mikaela Winchester DO When: 2 to 3 weeks with [place] office Meaningful Use Info Meaningful Use Diagnoses (Choose all that apply): None applicable Discharge Plan Admission Admit Date/Time: 03/06/24 02:32 Primary Reason for Your Visit: Abdominal pain, Attending Provider: Steve Escoto Primary Care Provider: Care Physician,No Primary Instructions Additional Instructions / Restrictions: No lifting more than 25 pounds for 2 weeks. Nothing in vagina for 2 weeks. Okay to shower and take a bath. Call with increasing pain or bleeding. Use Tylenol and Motrin as needed for pain. Discharge Orders/Prescriptions Prescriptions: No Action NK Referrals / Follow Up: Care Physician,No Primary [Primary Care Provider] - Disposition Disposition (needs filled in before D/C Order can be placed): Home, Self Care
== END 2024-03-06 11:13 | disposition home or self-care (01) ==
LOC: ED 21:08 → SDC 23:41 → MS3 03-06 05:11
PROVIDERS: Admitting Provider Obstetrics & Gynecology; Emergency Provider Emergency Medicine; Visit Provider Obstetrics & Gynecology
PROC: 10T24ZZ Resection of Products of Conception, Ectopic, Percutaneous Endoscopic Approach (ICD-10-PCS; CPT 59150; principal; 2024-03-06 00:45)
DX: O00.102 Left tubal pregnancy without intrauterine pregnancy (principal); O99.331 Smoking (tobacco) complicating pregnancy, first trimester; F17.210 Nicotine dependence, cigarettes, uncomplicated; Z3A.01 Less than 8 weeks gestation of pregnancy
CPT/HCPCS: 59151; 00840; 76817; 80048; 84702; 85025; 88305; 96361; 96374; 96375; 96376; 99221; 99283; J7030; A4216; C1760; G0378; J2405

== ENCOUNTER 2024-05-22 12:49 | Emergency (ER) | payer MEDICAID, SELFPAY ==
[2024-05-22 12:49] VITALS: BP 126/89; PULSE 86; RESP 25; TEMP 36.2; O2SAT 98; BMI 43.8
--- NOTE | 2024-05-22 14:47 | EDS_ITS ---
HPI History of Present Illness Chief Complaint: Headache Informant: patient Narrative Narrative: 28-year-old female has a history of migraines similar to this 1, she states this headache started gradually as a regular headache bifrontal 2 days ago, yesterday started becoming worse like a migraine, that was gradual as well, no sudden onset worsening, loss of consciousness, thunderclap, or focal peripheral neurologic symptoms. She states all of the symptoms are similar to prior migraines. 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 No confusion no fevers or chills. She has photophobia, some blurry vision, and vomiting when the headache has become severe. Not a lot of vomiting. 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 Endometriosis Brain tumor Bowel obstruction Home Medications ?Medication ?Instructions ?Recorded ?Last Taken ?Type NK 03/05/24 Unknown History Allergy/AdvReac Type Severity Reaction Status Date / Time bee venom protein (honey bee) Allergy Mild Swelling Verified 05/22/24 12:49 bupropion (From Wellbutrin) Allergy Mild Other Verified 05/22/24 12:49 Family History (Updated 03/18/24 @ 09:45 by Mindy Sales) Grandmother Breast cancer Paternal Grandfather Cancer Paternal-Skin Grandmother Colon cancer Maternal Surgical History H/O unilateral salpingectomy Hx of laparoscopy Hx of dilation and curettage Social History housing: apartment current occupational status: employed current occupation: [employer] Smoking Status: Current every day smoker tobacco type: cigarettes alcohol intake: current alcohol intake frequency: holidays/special occasions on ly substance use type: marijuana seatbelt use: always do you feel safe at home: Yes additional social history: Single ROS ROS ED Constitutional Constitutional ED: Denies chills or fever(s) Eyes Eyes: Reports blurry vision; Denies diplopia ENT ENT ED: Denies ear pain or sore throat Cardiovascular Cardiovascular: Denies chest pain or palpitations Respiratory/Chest Respiratory/Chest: Denies cough or dyspnea Gastrointestinal Gastrointestinal: Reports nausea and vomiting; Denies abdominal pain or diarrhea Genitourinary Genitourinary ED: Denies dysuria or urinary frequency Musculoskeletal Musculoskeletal: Reports neck pain; Denies back pain or myalgias Integumentary Denies abscess or rash Neurologic Neurologic: Reports headache(s); Denies paresthesias or weakness EXAM Physical Exam Const Vital Signs: 05/22/24 12:49 05/22/24 14:49 05/22/24 16:00 Temperature 97.2 F L Temperature Source Temporal Pulse Rate 86 64 50 L Respiratory Rate 25 H 16 18 Blood Pressure 126/89 H 94/63 100/68 Blood Pressure Mean 101 73 78 Pulse Ox 98 98 98 Oxygen Delivery Method Room Air Room Air Positive well nourished and well developed General Appearance ED: well developed and NAD HEENT Reports normocephalic and moist mucous membranes atraumatic Eyes PERRL, EOMs intact bilaterally and conjunctivae normal Eyes Narrative: photophobia Neck no lymphadenopathy, supple and no meningeal signs Resp normal respiratory effort GI non-distended Extremity normal to inspection and full ROM Neuro oriented x3 and CN's II-XII intact bilaterally Sensorium / Orientation: awake and alert Speech: speech normal Gait (Neuro): normal gait Motor Exam: strength 5/5 throughout Psych mental status grossly normal Skin Lesions: no lesions Rashes: no rashes MDM MDM MDM Narrative Medical decision making narrative: After liter of IV fluid, Reglan, Toradol patient is feeling much better and was completely resolved, able to look at her phone with normal brightness, etc. She feels well enough to go home. Given this we both agree that she does not require emergent CT of the head at this time. Discharge Plan Triage Chief Complaint: Headache ED Provider: Gustavo Ugarte Dx/Rx/DC Orders Clinical Impression: Migraine headache Instructions: ED, Migraine (Classical) Prescriptions: No Action NK Primary Care Provider: Care Physician,No Primary Referrals: Doctor,Your [Non-Staff] - As Needed Print Language: [place] Disposition Disposition: Home, Self Care
[2024-05-22 14:49] VITALS: BP 94/63; PULSE 64; RESP 16; O2SAT 98
[2024-05-22] MEDS: Metoclopramide 10 MG/2 ML Vial 5 MG IV (14:59)
[2024-05-22] MEDS: Ketorolac 30 MG/ML Syringe IV (14:59)
[2024-05-22] MEDS: 0.9% Normal Saline (1000mL) 1,000 ML 999 ML IV (14:59)
[2024-05-22 16:00] VITALS: BP 100/68; PULSE 50; RESP 18; O2SAT 98
[2024-05-22 16:19] VITALS: BP 109/74; PULSE 50; RESP 16; TEMP 37.1; O2SAT 97
== END 2024-05-22 16:22 | disposition home or self-care (01) ==
PROVIDERS: Emergency Provider Emergency Medicine; Visit Provider Emergency Medicine
DX: G43.909 Migraine, unspecified, not intractable, without status migrainosus (principal); F17.210 Nicotine dependence, cigarettes, uncomplicated; F12.90 Cannabis use, unspecified, uncomplicated
CPT/HCPCS: 96361; 96374; 96375; 96376; 99282; J7030; A4216

== ENCOUNTER 2024-06-26 15:05 | Emergency (ER) | payer MEDICAID, SELFPAY ==
[2024-06-26 15:06] VITALS: BP 158/92; PULSE 72; RESP 16; TEMP 36.6; O2SAT 98; BMI 43.8
--- NOTE | 2024-06-26 15:38 | CT_ITS ---
STUDY: CT ABDOMEN AND PELVIS WITH CONTRAST REASON FOR EXAM: Female, 29 years old. The lower abd pain, s/p salpingectomy, poss infxn RADIATION DOSAGE (If Supplied By Facility): CTDIvol = ( 17.29 ) mGy, DLP = ( 1229.90 ) mGycm TECHNIQUE: Transaxial images were obtained from the dome of the diaphragm to the symphysis pubis without oral contrast. IV 100mL Isovue-300 was administered. Sagittal and coronal images were reconstructed. Individualized dose optimization techniques were used for this CT. COMPARISON: None. FINDINGS: The visualized lung bases are unremarkable. The visualized portions of the heart are within normal limits. Normal liver. Normal gallbladder and extrahepatic biliary system. Normal spleen. Normal pancreas. Normal bilateral adrenal glands. Normal right kidney. Normal left kidney. Evaluation of the GI tract is limited by absence of oral contrast. Cannot exclude stomach wall thickening. No dilated loops of bowel or evidence for obstruction. Cannot exclude segmental thickening of the ruff of the small or large bowel. Cannot exclude enteritis or colitis. Moderate diffuse fecal retention. Appendix within normal limits. Normal abdominal aorta. Normal inferior vena cava. Normal retroperitoneum. Normal urinary bladder. Normal visualized uterus. Normal abdominal wall. Normal osseous structures. CT/Abdomen/Pelvis W IV Cont ONLY IMPRESSION: There is no acute abnormality. Electronically Signed: Tremaine Montanez MD at 16:35 EDT ,
--- NOTE | 2024-06-26 15:38 | ED.VIS.GI ---
HPI HPI - GI History of Present Illness Chief Complaint: Wound Check Informant: patient Narrative Narrative: 29-year-old female had an emergent salpingectomy on the left for an ectopic back in February of this year. Everything healed up pretty well. She states at the beginning of May, 1 month ago, she states after having intercourse the next day she noticed some soreness in the suprapubic area and there was what appeared to be bruising at one of the incision sites. She states at work, she often leans against a counter at this exact same location so she is not sure what caused the bruising but she continue to monitor it. About a week or so later, she spontaneously had a small amount of what appeared to be purulent discharge come out of this area of the skin. Today, she started having some minor bleeding from there, saw her OB who advised that she come here for imaging. Patient states when she pushes on this area, it hurts in her left lower quadrant. PFSH PFSH Medical History Hemoperitoneum due to rupture of left tubal ectopic Endometriosis Brain tumor Bowel obstruction Home Medications ?Medication ?Instructions ?Recorded ?Last Taken ?Type NK 03/05/24 Unknown History Allergy/AdvReac Type Severity Reaction Status Date / Time bee venom protein (honey bee) Allergy Mild Swelling Verified 06/26/24 15:06 bupropion (From Wellbutrin) Allergy Mild Other Verified 06/26/24 15:06 Family History Grandmother Breast cancer Paternal Grandfather Cancer Paternal-Skin Grandmother Colon cancer Maternal Surgical History H/O unilateral salpingectomy Hx of laparoscopy Hx of dilation and curettage Social History housing: apartment current occupational status: employed current occupation: [employer] house Smoking Status: Current every day smoker tobacco type: cigarettes alcohol intake: current alcohol intake frequency: holidays/special occasions only substance use type: marijuana seatbelt use: always do you feel safe at home: Yes additional social history: Single ROS ROS ED Constitutional Constitutional ED: Reports fatigue; Denies chills or fever(s) Eyes Eyes: Denies change in vision or diplopia ENT ENT ED: Denies rhinorrhea or sore throat Cardiovascular Cardiovascular: Denies chest pain or palpitations Respiratory/Chest Respiratory/Chest: Denies cough or dyspnea Gastrointestinal Gastrointestinal: Reports abdominal pain and diarrhea; Denies nausea or vomiting Genitourinary Genitourinary ED: Denies dysuria, hematuria, vaginal bleeding or vaginal discharge Musculoskeletal Musculoskeletal: Denies back pain or neck pain Integumentary Denies abscess or rash Neurologic Neurologic: Denies headache(s), paresthesias or weakness Psychiatric Psychiatric: Denies anxiety or suicidal thoughts EXAM Physical Exam Const Vital Signs: 06/26/24 15:06 06/26/24 15:06 06/26/24 16:08 Temperature 98 F 98 F 98.3 F Temperature Source Temporal Temporal Temporal Pulse Rate 72 72 57 L Respiratory Rate 16 16 16 Blood Pressure 158/92 H 158/92 H 118/78 Blood Pressure Mean 114 114 91 Pulse Ox 98 98 98 Oxygen Delivery Method Room Air Room Air Room Air 06/26/24 17:00 Temperature 97.5 F L Temperature Source Oral Pulse Rate 74 Respiratory Rate 16 Blood Pressure 106/74 Blood Pressure Mean 84 Pulse Ox 99 Oxygen Delivery Method Room Air Positive well nourished and well developed General Appearance ED: well developed and NAD HEENT Reports moist mucous membranes normocephalic and atraumatic Eyes PERRL and EOMs intact bilaterally Neck full ROM and supple Resp normal respiratory effort and clear to auscultation bilaterally Cardio regular rate, regular rhythm and no murmurs GI non-distended GI Narrative: She has small cutaneous/subcutaneous nodule that is darkly discolored but without purpura or ecchymosis in the suprapubic region of the abdominal wall, there is a small opening but nothing expressible right now. There is no erythema or signs of cellulitis. It has the appearance of a healing small superficial abscess that is already drained. However when palpating this area she complains of pain in the left lower quadrant remote from this particular region. No guarding or rebound or other areas of tenderness. Auscultation: normoactive bowel sounds Palpation: soft Speculum Exam - Vagina: Negative for vaginal bleeding or vaginal discharge Back/Spine no CVA tenderness General Back: other FROM Extremity normal to inspection General Extremety ED: Negative for edema, pulses abnormal or tenderness General Extremity: Negative for edema or pulses abnormal Neuro oriented x3, CN's II-XII intact bilaterally and no sensory deficits noted Sensorium / Orientation: awake and alert Motor Exam: strength 5/5 throughout Skin no rashes or lesions noted and no wounds MDM MDM MDM Narrative Medical decision making narrative: Labs and a CT were done. is negative ruling out ectopic , white blood count is slightly elevated. The concern here was that she could have a superficial appearance of part of an infection that is tunneling and or creating an abscess intra-abdominal. I reviewed the CT images and the report which I agree with, it is negative for anything acute. Patient is reassured, she comfortable at home, I recommend topical treatment on the small area of her lower abdominal wall I do not think there is any I&D indicated right now is barely palpable over there. She is comfortable with that plan. Lab Data Attestation: I reviewed the patient's lab results. Labs: Laboratory Results - last 24 hr 06/26/24 15:44 WBC 12.2 H RBC 4.88 Hgb 15.5 H Hct 46.0 MCV 94.3 MCH 31.8 MCHC 33.7 RDW Std Deviation 45.1 H RDW Coeff of Suzanne 13.1 Plt Count 289 MPV 9.4 Immature Gran % (Auto) 0.200 Neut % (Auto) 70.4 H Lymph % (Auto) 22.3 [place] % (Auto) 4.2 Eos % (Auto) 2.3 Baso % (Auto) 0.6 Absolute Neuts (auto) 8.6 H Absolute Lymphs (auto) 2.73 Nucleated RBC % 0 Sodium 138 Potassium 4.2 Chloride 110 H Carbon Dioxide 24.0 Anion Gap 4 L BUN 7 Creatinine 0.79 Estim Creat Clear Calc 149.07 Est GFR (MDRD) Af Amer 110 Est GFR (MDRD) Non-Af 91 BUN/Creatinine Ratio 8.9 L Glucose 105 Calcium 9.0 Serum , Qual NEGATIVE Radiography Diagnostic Testing: Clinical Impression(s) from Imaging Studies Abdomen/Pelvis CT 06/26/24 15:38 IMPRESSION: There is no acute abnormality. Electronically Signed: Tremaine Montanez MD at 16:35 EDT , Discharge Plan Triage Chief Complaint: Wound Check Other Complaint: Abd Pain ED Provider: Gustavo Ugarte Dx/Rx/DC Orders Clinical Impression: Left lower quadrant abdominal pain Instructions: Abdominal Pain Prescriptions: No Action NK Primary Care Provider: Care Physician,No Primary Referrals: Care Physician,No Primary [Primary Care Provider] - Print Language: [place] Disposition Disposition: Home, Self Care
[2024-06-26] MEDS: 0.9% Normal Saline (1000mL) 1,000 ML 125 ML IV (15:52)
[2024-06-26 15:58] LABS: Absolute Lymphocyte Count 2.73 X10^3/uL (0.83-4.51); Absolute Neutrophil Count 8.6 X10^3/uL (2.0-7.7); Basophil# 0.07 X10^3/uL; Basophil% 0.6 % (0-1); Eosinophil# 0.28 X10^3/uL; Eosinophils% 2.3 % (0-5); Hemoglobin 15.5 g/dL (12.0-15.0); Lymphocyte # 2.73 X10^3/ul (0.83-4.51); Lymphocyte % 22.3 % (19-41); Mean Corp Hgb Conc 33.7 g/dL (32-36); Mean Corpuscular Hgb 31.8 pg (27.0-32.0); Mean Corpuscular Volume 94.3 fL (81-99); Mean Platelet Vol. 9.4 fl (6.2-12.0); Monocyte# 0.51 X10^3/uL; Monocyte% 4.2 % (0-10); NRBC Flagged by Analyzer 0 % (0-5); Neutrophil # 8.61 X10^3/uL (2.7-7.7); Neutrophil % 70.4 % (47-70); Platelet Count 289 K/mm3 (150-450); RBC Distribution Width CV 13.1 % (11.6-14.6); RBC Distribution Width SD 45.1 fl (35.1-43.9); Red Blood Count 4.88 M/mm3 (4.2-5.4); White Blood Count 12.2 K/mm3 (4.4-11.0)
[2024-06-26 16:08] VITALS: BP 118/78; PULSE 57; RESP 16; TEMP 36.8; O2SAT 98
[2024-06-26 16:10] LABS: Anion Gap 4 (5-15); BUN 7 mg/dL (7-18); BUN/Creat Ratio 8.9 RATIO (10-20); Chloride 110 mmol/L (98-107); Creatinine, Serum 0.79 mg/dL (0.55-1.02); EST Glomerular Filtration Rate 91 mL/min (>60); Est Glom Filt Rate - Afr Amer 110 mL/min (>60); Estimated Creatinine Clearance 149.07 ml/min; Glucose 105 mg/dL (74-106); Potassium 4.2 mmol/L (3.5-5.1); Sodium Level 138 mmol/L (136-145)
[2024-06-26 16:15] LABS: Internal QC Validated? YES +Cl - CLEAR BKGD; Pregnancy, Serum, hCG Quali. NEGATIVE Negative
[2024-06-26 17:00] VITALS: BP 106/74; PULSE 74; RESP 16; TEMP 36.4; O2SAT 99
== END 2024-06-26 19:08 | disposition home or self-care (01) ==
PROVIDERS: Emergency Provider Emergency Medicine; Visit Provider Emergency Medicine
DX: R10.32 Left lower quadrant pain (principal); F12.90 Cannabis use, unspecified, uncomplicated; F17.290 Nicotine dependence, other tobacco product, uncomplicated
CPT/HCPCS: 74177; 80048; 84703; 85025; 96360; 96361; 99284; J7030; A4216

== ENCOUNTER → 2024-07-02 | Outpatient (CLI) | payer MEDICAID, SELFPAY | END | disposition home or self-care (01) | PROVIDERS: Referring Provider Nurse Practitioner Family; Visit Provider Nurse Practitioner Family | DX: L73.9 Follicular disorder, unspecified (principal) | CPT/HCPCS: 87070; 87205 ==

== ENCOUNTER 2024-09-08 20:22 | Emergency (ER) | payer MEDICAID, SELFPAY ==
[2024-09-08 20:25] VITALS: BP 133/86; PULSE 83; RESP 18; TEMP 36.2; O2SAT 100; BMI 43.4
--- NOTE | 2024-09-08 20:45 | CT_ITS ---
EXAM: CT ANGIOGRAPHY HEAD AND NECK WITH INTRAVENOUS CONTRAST CLINICAL INDICATION: headache, syncope TECHNIQUE: [place] [facility] [place]/head and neck CT angiography protocol performed with intravenous contrast. This CT exam was performed using one or more of the following dose reduction techniques: automated exposure control, adjustment of the mA and/or kV according to patient size, and/or use of iterative reconstruction technique. MIP reconstructed images were created and reviewed. CONTRAST: IV 100mL Isovue-370 RADIATION DOSE: Total DLP: 1622.39 mGy-cm. COMPARISON: No relevant prior studies available. FINDINGS: HEAD:Nonenhanced cranial CT shows a lobulated collection of fat attenuation within the superior posterior fossa, anterior and to the left of the cerebellar vermis which is mildly atrophic to the left of midline; the superior aspect of this fat collection abuts the inferior surface of the tentorium, just to the left of midline. This lobulated fat attenuation lesion measures up to 21 mm in cephalocaudal dimension by 11 mm in maximal transverse diameter by 23 mm in maximal AP diameter. There is no adjacent mass effect upon the brainstem. This lesion shows no abnormal enhancement on follow-up CTA. No internal calcification is seen within this lesion. Nonenhanced cranial CT is otherwise unremarkable. 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 No occlusion or significant stenosis. Anterior communicating artery is present. No aneurysm. RIGHT MIDDLE CEREBRAL ARTERY: Unremarkable. No occlusion or significant stenosis. No aneurysm. No filling defect. RIGHT POSTERIOR CEREBRAL ARTERY: Unremarkable. No occlusion or significant stenosis. No aneurysm. RIGHT INTRACRANIAL INTERNAL CAROTID ARTERY: Unremarkable. No significant stenosis. No dissection or occlusion. RIGHT INTRACRANIAL VERTEBRAL ARTERY: Nondominant/small. No significant stenosis. No dissection or occlusion. LEFT ANTERIOR CEREBRAL ARTERY: Anterior cerebral arteries fill from the left. No occlusion or significant stenosis. No aneurysm. LEFT MIDDLE CEREBRAL ARTERY: Unremarkable. No occlusion or significant stenosis. No aneurysm. No filling defect. LEFT POSTERIOR CEREBRAL ARTERY: Slightly smaller in caliber than on the right. No occlusion or significant stenosis. No aneurysm. LEFT INTRACRANIAL INTERNAL CAROTID ARTERY: Unremarkable. No significant stenosis. No dissection or occlusion. LEFT INTRACRANIAL VERTEBRAL ARTERY: Dominant. No significant stenosis. No dissection or occlusion. BASILAR ARTERY: Unremarkable. No occlusion or significant stenosis. No aneurysm. OTHER VASCULATURE: No vascular malformation. No acute infarction. No enhancing intracranial mass. Dural venous sinuses enhance normally. SINUSES: Incidental retention cyst noted at the base of the left maxillary antrum. No paranasal sinus air-fluid levels are identified. NECK: RIGHT COMMON CAROTID ARTERY: Unremarkable. No significant stenosis. No dissection or occlusion. RIGHT EXTRACRANIAL INTERNAL CAROTID ARTERY: Unremarkable. No significant stenosis. No dissection or occlusion. RIGHT EXTERNAL CAROTID ARTERY: Unremarkable. No occlusion. RIGHT EXTRACRANIAL VERTEBRAL ARTERY: Nondominant. No significant stenosis. No dissection or occlusion. LEFT COMMON CAROTID ARTERY: Unremarkable. No significant stenosis. No dissection or occlusion. LEFT EXTRACRANIAL INTERNAL CAROTID ARTERY: Unremarkable. No significant stenosis. No dissection or occlusion. LEFT EXTERNAL CAROTID ARTERY: Unremarkable. No occlusion. LEFT EXTRACRANIAL VERTEBRAL ARTERY: Dominant. No significant stenosis. No dissection or occlusion. BRACHIOCEPHALIC AND SUBCLAVIAN ARTERIES: Unremarkable as visualized. No occlusion or significant stenosis. LUNG APICES: Visualized upper lungs are clear. The visualized upper lobe pulmonary arteries show no filling defects. Aortic arch is normal in caliber and shows no intimal flap. HEAD and NECK: BONES/JOINTS: No acute osseous abnormality. SOFT TISSUES: No thyroid nodules. CAROTID STENOSIS REFERENCE USING NASCET CRITERIA: % ICA stenosis = (1 - narrowest ICA diameter/diameter of distal cervical ICA) x 100. Mild - <50% stenosis. Moderate - 50-69% stenosis. Severe - 70-94% stenosis. Near occlusion - 95-99% stenosis. Occluded - 100% stenosis. CT/CTA Head AND Neck W/ Contrast IMPRESSION: Lobulated fat collection to the left of the cerebellar vermis, consistent with paravermian lipoma; differential diagnosis also includes teratoma. Unremarkable CTA of the neck. CTA head shows no intracranial aneurysm, enhancing mass, hemodynamically significant stenosis or large vessel occlusion. Electronically Signed: Jose Rafael Tejada MD at 22:48 EDT ,
--- NOTE | 2024-09-08 20:46 | EDS_ITS ---
HPI History of Present Illness Chief Complaint: Syncope Detail of Chief Complaint: Syncope and headaches Informant: patient Narrative Narrative: Patient presents to the emergency department with complaint of headaches for the last 2 weeks or so. Frequent headaches that typically get better with Excedrin. She states that years ago she was did have migraines and used to be on medicine for them but had been doing well without medicine. 2 weeks ago started having headaches again frequently. Patient also states that last week and a half she is probably passed out about 6 times. She remembers feeling really hot before she passes out. 2 of the time she was found flat on the floor but for the other time she was able to lower herself down to the ground and sit crisscross. Patient often times has no recollection how she got down to the floor. She tells me she has history of a brain tumor on the left side of her head but states it is not cancerous. She used to see a neurologist in [place] but recently moved to the area. She denies any falls or head injuries. Denies family history of sudden cardiac . Patient states her headaches do typically cause nausea and vomiting as well as photophobia. 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 Endometriosis Brain tumor Bowel obstruction Home Medications ?Medication ?Instructions ?Recorded ?Last Taken ?Type amoxicillin 500 mg-potassium 1 tab PO BID #20 tabs 07/09/24 Unknown Rx clavulanate 125 mg tablet (Augmentin) fluconazole 150 mg tablet 150 mg PO Q3D 2 doses #2 tabs 07/14/24 Unknown Rx Allergy/AdvReac Type Severity Reaction Status Date / Time bee venom protein (honey bee) Allergy Mild Swelling Verified 09/08/24 20:25 bupropion (From Wellbutrin) Allergy Mild Other Verified 09/08/24 20:25 Family History Grandmother Breast cancer Paternal Grandfather Cancer Paternal-Skin Grandmother Colon cancer Maternal Surgical History H/O unilateral salpingectomy Hx of laparoscopy Hx of dilation and curettage Social History housing: apartment current occupational status: employed current occupation: [employer] Smoking Status: Current every day smoker tobacco type: cigarettes alcohol intake: current alcohol intake frequency: holidays/special occasions only substance use type: marijuana seatbelt use: always do you feel safe at home: Yes additional social history: Single ROS ROS ED Review of Systems ROS Unobtainable: other Constitutional Constitutional ED: Reports lethargy; Denies chills, fever(s), sweats or weight loss Eyes Eyes: Denies blurry vision, change in vision or diplopia ENT ENT ED: Denies rhinorrhea or sore throat Cardiovascular Cardiovascular: Denies chest pain, orthopnea or racing heartbeat Respiratory/Chest Respiratory/Chest: Denies cough, dyspnea, dyspnea on exertion, orthopnea or sputum Gastrointestinal Gastrointestinal: Reports nausea; Denies abdominal pain, diarrhea or vomiting Genitourinary Genitourinary ED: Denies dysuria, hematuria or urinary frequency Musculoskeletal Musculoskeletal: Denies arthralgias, back pain, myalgias or neck pain Integumentary Denies abscess, Abrasions or rash Neurologic Neurologic: Reports headache(s) and other Details: Syncopal episodes ; Denies weakness Psychiatric Psychiatric: Denies anxiety, depression or suicidal thoughts Endocrine Endocrinology: Denies polydipsia, polyphagia or polyuria Hematologic/Lymphatic Hematologic/Lymphatic: Denies easy bleeding, easy bruising or lymphadenopathy Allergic/Immunologic Allergic/Immunologic ED: Denies mouth swelling, tongue swelling or urticaria EXAM Physical Exam Const Vital Signs: 09/08/24 20:25 09/08/24 20:46 09/08/24 22:24 Temperature 97.2 F L Temperature Source Temporal Pulse Rate 83 64 Respiratory Rate 18 28 H Respiratory Effort Normal Non-Labored Respiratory Pattern Normal Blood Pressure 133/86 H 135/81 H Blood Pressure Mean 101 99 Pulse Ox 100 99 Oxygen Delivery Method Room Air Room Air Positive well nourished and well developed General Appearance ED: well developed and NAD HEENT Reports TM's clear and moist mucous membranes normocephalic and atraumatic; Negative for trauma or tenderness Tympanic Membrane ED: Yes TM's clear Eyes PERRL and EOMs intact bilaterally General Eye ED: Negative for pale conjunctiva or scleral icterus Neck no lymphadenopathy, supple and no JVD General: Negative for tenderness Chest Wall inspection of chest normal and palpation of chest normal Chest: Negative for tenderness Resp normal respiratory effort and clear to auscultation bilaterally Effort and Inspection: Negative for respiratory distress or pain with movement Auscultation: Negative for rhonchi, wheezes or diminished lung sounds Cardio regular rate, regular rhythm, S1 normal heart sound, S2 normal heart sound and no murmurs Peripheral Pulses: pulses 2+ throughout GI normal to inspection, nondistended, normoactive bowel sounds, soft to palpation, non-tender, non-distended and no masses Back/Spine no CVA tenderness and no thoracic nor lumbar tenderness Extremity normal to inspection General Extremety ED: Negative for edema General Extremity: Negative for edema Neuro oriented x3, CN's II-XII intact bilaterally, no sensory deficits noted and gait normal Sensorium / Orientation: awake, alert, oriented to person, oriented to place and oriented to time Motor Exam: strength 5/5 throughout and strength abnormal Psych mental status grossly normal Skin no rashes or lesions noted and no wounds MDM MDM MDM Narrative Medical decision making narrative: Patient presents with headache and syncopal episodes. In the differential would be brain aneurysm versus brain tumor or possibly vasovagal episode or POTS. Cardiac dysrhythmia in the differential. IV line established. EKG obtained arrival shows sinus rhythm with ventricular rate of 60 bpm with no acute ST segment changes. CBC with differential obtained showed a white count of 11.8 with hemoglobin 14.4 platelet count 292. Chemistries unremarkable. was negative. CTA of the brain obtained showed lobulated fat collection to the left of the cervical cerebellar vermis consistent with para for Jose lipoma. This is consistent with what the patient told me in the past. There was no evidence of brain aneurysm or other acute process. Patient did not want any pain medication for headache. This point I suspect likely she is having migraines. The etiology of the syncope is unclear as possibly may be vagal versus possibly POTS. I will give her the referral to cardiology as well as neurology for follow-up. Lab Data Attestation: I reviewed the patient's lab results. Labs: Laboratory Results - last 24 hr 09/08/24 20:45 WBC 11.8 H RBC 4.36 Hgb 14.4 Hct 42.7 MCV 97.9 MCH 33.0 H MCHC 33.7 RDW Std Deviation 46.5 H RDW Coeff of Suzanne 12.9 Plt Count 292 MPV 9.6 Immature Gran % (Auto) 0.400 Neut % (Auto) 65.3 Lymph % (Auto) 25.1 Finney % (Auto) 6.6 Eos % (Auto) 2.1 Baso % (Auto) 0.5 Absolute Neuts (auto) 7.7 Absolute Lymphs (auto) 2.95 Nucleated RBC % 0 Sodium 138 Potassium 3.9 Chloride 109 H Carbon Dioxide 29.0 Anion Gap 1 L BUN 7 Creatinine 0.67 Estim Creat Clear Calc 174.82 Est GFR (MDRD) Af Amer 133 Est GFR (MDRD) Non-Af 110 BUN/Creatinine Ratio 10.5 Glucose 80 Calcium 8.8 Serum , Qual NEGATIVE Radiography Diagnostic Testing: Clinical Impression(s) from Imaging Studies Head/Neck CTA 09/08/24 20:45 IMPRESSION: Lobulated fat collection to the left of the cerebellar vermis, consistent with paravermian lipoma; differential diagnosis also includes teratoma. Unremarkable CTA of the neck. CTA head shows no intracranial aneurysm, enhancing mass, hemodynamically significant stenosis or large vessel occlusion. Electronically Signed: Jose Rafael Tejada MD at 22:48 EDT , EKG Initial EKG: Attestation: I personally reviewed and interpreted this EKG as follows: Comments: Sinus rhythm with ventricular rate of 60 bpm with no acute ST segment change Discharge Plan Triage Chief Complaint: Syncope Other Complaint: Headache ED Provider: Massimo Gayle Dx/Rx/DC Orders Clinical Impression: Migraine, Syncope Instructions: ED, Migraine (Classical), ED Fainting, Uncertain Cause, ED Near- Fainting, Uncertain Cause Prescriptions: No Action amoxicillin-pot clavulanate [Augmentin] 500-125 mg tablet 1 tab PO BID Qty: 20 0RF fluconazole 150 mg tablet 150 mg PO Q3D Qty: 2 0RF Rx Instructions: may repeat second dose 72 hrs after first dose if symptoms persist Primary Care Provider: Care Physician,No Primary Referrals: Damon Holder MD [Med Staff - Stripping Shovel Oiler] - 5-7 Days Ajit Cheek MD [Med Staff - Active Staff] - 3-5 Days Christopher Khan MD [Non-Staff -Ordering Privileges] - 5-7 Days Care Physician,No Primary [Primary Care Provider] - Print Language: Anguillan Disposition Disposition: Home, Self Care
[2024-09-08 20:59] LABS: Absolute Lymphocyte Count 2.95 X10^3/uL (0.83-4.51); Absolute Neutrophil Count 7.7 X10^3/uL (2.0-7.7); Basophil# 0.06 X10^3/uL; Basophil% 0.5 % (0-1); Eosinophil# 0.25 X10^3/uL; Eosinophils% 2.1 % (0-5); Hematocrit 42.7 % (37-47); Hemoglobin 14.4 g/dL (12.0-15.0); Lymphocyte # 2.95 X10^3/ul (0.83-4.51); Lymphocyte % 25.1 % (19-41); Mean Corp Hgb Conc 33.7 g/dL (32-36); Mean Corpuscular Volume 97.9 fL (81-99); Mean Platelet Vol. 9.6 fl (6.2-12.0); Monocyte# 0.78 X10^3/uL; Monocyte% 6.6 % (0-10); NRBC Flagged by Analyzer 0 % (0-5); Neutrophil # 7.66 X10^3/uL (2.7-7.7); Neutrophil % 65.3 % (47-70); Platelet Count 292 K/mm3 (150-450); RBC Distribution Width CV 12.9 % (11.6-14.6); RBC Distribution Width SD 46.5 fl (35.1-43.9); Red Blood Count 4.36 M/mm3 (4.2-5.4); White Blood Count 11.8 K/mm3 (4.4-11.0)
[2024-09-08 21:10] LABS: Internal QC Validated? YES +Cl - CLEAR BKGD; Pregnancy, Serum, hCG Quali. NEGATIVE Negative
[2024-09-08 21:15] LABS: Anion Gap 1 (5-15); BUN 7 mg/dL (7-18); BUN/Creat Ratio 10.5 RATIO (10-20); Calcium,Total 8.8 mg/dL (8.5-10.1); Chloride 109 mmol/L (98-107); Creatinine, Serum 0.67 mg/dL (0.55-1.02); EST Glomerular Filtration Rate 110 mL/min (>60); Est Glom Filt Rate - Afr Amer 133 mL/min (>60); Estimated Creatinine Clearance 174.82 ml/min; Glucose 80 mg/dL (74-106); Potassium 3.9 mmol/L (3.5-5.1); Sodium Level 138 mmol/L (136-145)
[2024-09-08 22:24] VITALS: BP 135/81; PULSE 64; RESP 28; O2SAT 99
== END 2024-09-08 23:03 | disposition home or self-care (01) ==
PROVIDERS: Emergency Provider Emergency Medicine; Visit Provider Emergency Medicine
DX: G43.909 Migraine, unspecified, not intractable, without status migrainosus (principal); R55 Syncope and collapse; F17.210 Nicotine dependence, cigarettes, uncomplicated
CPT/HCPCS: 70496; 70498; 80048; 84703; 85025; 93005; 99285; Q9967; A4216

== ENCOUNTER 2024-10-21 11:27 | Emergency (ER) | payer MEDICAID, SELFPAY ==
[2024-10-21 11:29] VITALS: BP 128/71; PULSE 70; RESP 17; TEMP 36.4; O2SAT 100; BMI 44.0
--- NOTE | 2024-10-21 12:41 | ED.VIS.DYS ---
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 Endometriosis Brain tumor Bowel obstruction Home Medications ?Medication ?Instructions ?Recorded ?Last Taken ?Type sertraline 100 mg tablet 100 mg PO QDAY 10/20/24 Unknown History Allergy/AdvReac Type Severity Reaction Status Date / Time bee venom protein (honey bee) Allergy Mild Swelling Verified 10/21/24 11:33 bupropion (From Wellbutrin) Allergy Mild Other Verified 10/21/24 11:33 Family History Grandmother Breast cancer Paternal Grandfather Cancer Paternal-Skin Grandmother Colon cancer Maternal Surgical History H/O unilateral salpingectomy Hx of laparoscopy Hx of dilation and curettage Social History housing: apartment current occupational status: employed current occupation: [email or web address] Smoking Status: Current every day smoker tobacco type: cigarettes alcohol intake: current alcohol intake frequency: holidays/special occasions only substance use type: marijuana seatbelt use: always do you feel safe at home: Yes additional social history: Single EXAM Physical Exam Const Vital Signs: 10/21/24 11:29 10/21/24 11:39 Temperature 97.6 F L Temperature Source Temporal Pulse Rate 70 Respiratory Rate 17 Respiratory Effort Normal Respiratory Depth Normal Respiratory Pattern Normal Blood Pressure 128/71 H Blood Pressure Mean 90 Pulse Ox 100 Oxygen Delivery Method Room Air Room Air MDM MDM MDM Narrative Medical decision making narrative: HISTORY OF PRESENT ILLNESS: 29-year-old female presents with shortness of breath. This last approximate 20 minutes. Currently asymptomatic. Notes this happened to her in the past. 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 No she has had a heart rate monitor which showed bradycardia. Thinks it could be related to anxiety. Denies chest pain. Denies bleeding diathesis. Denies palpitations. Denies cough fever chills. The patient denies recent surgery in the last 4 weeks or immobilization in the last 3 days, denies previous diagnosis of DVT or PE, hemoptysis, unilateral leg swelling or malignancy with treatment the last 6 months or palliative. No estrogen use noted. She states she feels fine now and just once at home and sleep. REVIEW OF SYSTEMS: Pertinent positives: Shortness of breath Pertinent negatives: Chest pain, palpitations, leg swelling, mopped assist, cough, fever, chills PHYSICAL EXAM: Nursing triage notes reviewed, Vital signs reviewed Constitutional: please see mdm HENT: MMM Eyes: Pupils equal round and reactive to light, Extraocular muscles intact Neck: No stridor, no JVD, full neck ROM Lungs: Clear to auscultation, No wheezing or rales. No increased work of breathing, no conversational dyspnea, no accessory muscle use, no nasal flaring. No respiratory distress noted Heart: Regular rate and rhythm, No murmurs, No rubs and No gallops, 2+ distal pulses (radial, femoral, posterior tibial) in all extremities Abdomen: Soft, there is no tenderness, rigidity, rebound or guarding, no obvious peritoneal signs, no palpable pulsatile abdominal masses, no auscultated abdominal bruit : No CVAT Extremities: No edema Neuro: No focal neurological deficits, cranial nerves II through XII intact, 5/5 strength in all extremities. Intact sensation to light touch in all extremities, 2+ reflexes bilateral patella tendons. Normal gait. No ataxia. Skin: No rash or lesions noted MEDICAL DECISION MAKING: Chief Complaint: Shortness of External records reviewed: Reviewed prior cardiovascular testing. No recent echocardiograms noted Factors affecting care: anxiety Social determinants of health: Denies smoking or illicit drug use History obtained from others: none Consults: none [facility] Narrative: The patient was initially hemodynamically stable, afebrile and nontoxic-appearing. Exam without focal cardiopulmonary abnormalities I considered the following differential diagnosis: Pneumonia, arrhythmia, PE The patient's history and clinical exam were not consistent with pneumonia or PE she had a low risk Wells score and as such as CTA or D-dimer not indicated at this time Given her history of bradycardia I did obtain EKG which showed the following as below ALL IMAGES (IF OBTAINED) HAVE BEEN PERSONALLY REVIEWED AND INTERPRETED BY MYSELF. EKG with sinus bradycardia 56, normal axis, normal intervals, no STEMI, no signs of high degree heart block I discussed with the patient risk and benefits further ED evaluation and further workup including labs images and possible admission. The patient noted she would like to go home and refused labs images or further evaluation at this time. She is alert and orient x 3 neck past medical medicines or chose to be discharged home The patient and/or family, caregivers express understanding. The patient and/or family, caregivers agrees with the plan. Shared decision making: I will have a discussion with the patient and or visitors regarding risk/benefits of further testing or admission. They will be made aware of of the risk/benefits inherent in this decision they will be given the opportunity to voice understanding. Total critical care time today provided was at least 0 minutes. This excludes separately billable procedures. Critical care time (if documented) is secondary to the patient having high probability of clinically significant/life threatening deterioration in the patient's condition which required my urgent intervention. Impression: 1. Dyspnea 2. History of bradycardia Dispo: Discharge home This note was generated with [employer] dictation software. It may contain incorrect words, spelling, and punctuation that were not noted in review of the chart prior to signing. Discharge Plan Triage Chief Complaint: Shortness of Breath ED Provider: Iglesia Lemos Dx/Rx/DC Orders Instructions: ED Dyspnea Prescriptions: No Action sertraline 100 mg tablet 100 mg PO QDAY Primary Care Provider: JASON BATES Referrals: JASON BATES CRNP [Primary Care Provider] - Activity Restrictions/Additional Instructions: Thank you for trusting us with your care today! Your EKG was reassuring. Please return to the emergency department if your symptoms change or worsen. Specifically develop heart racing, you lose consciousness, no shortness of breath or chest pain Please follow with your primary care physician for further outpatient evaluation and management. Print Language: Vietnamese Disposition Disposition: Home, Self Care
[2024-10-21 13:11] VITALS: BP 134/76; PULSE 78; RESP 16; TEMP 36.6; O2SAT 99
== END 2024-10-21 13:12 | disposition home or self-care (01) ==
LOC: ED 13:04
PROVIDERS: Emergency Provider Emergency Medicine; PCP Nurse Practitioner Adult Health; Visit Provider Emergency Medicine
DX: R06.00 Dyspnea, unspecified (principal); F17.210 Nicotine dependence, cigarettes, uncomplicated; Z79.899 Other long term (current) drug therapy
CPT/HCPCS: 93005; 99284

== ENCOUNTER 2025-03-19 13:01 | Emergency (ER) | payer MEDICAID, SELFPAY ==
[2025-03-19 13:02] VITALS: BP 127/91; PULSE 86; RESP 20; TEMP 36.3; O2SAT 95; BMI 42.9
--- NOTE | 2025-03-19 13:44 | EX.ED.DYSGE1 ---
HPI History of Present Illness Chief Complaint: Back Narrative Narrative: Patient is a 29-year-old female with past medical history of endometriosis, brain tumor who presented to the emergency department chief complaint of back pain. Patient states that end of last week she was doing spring cleaning lifting heavy boxes and injured her back at that point time. She states that she tried to take ibuprofen and use ice and heat and she states that originally she thought her back pain was getting better however she states that today when she tried to get up off the couch her pain worsened again prompting her to come here for further evaluation management. She states that she wanted to be evaluated before her back pain was so severe that she was unable to ambulate. Patient states that she has been urinating normally for herself and having normal bowel movements. Denies any direct trauma or any other injuries. 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 Endometriosis Brain tumor Bowel obstruction Home Medications ?Medication ?Instructions ?Recorded ?Last Taken ?Type rizatriptan 5 mg disintegrating mg translingual ONCE PRN 01/15/25 Unknown History tablet topiramate 25 mg tablet 75 mg PO DIRECTED 01/15/25 Unknown History buspirone 7.5 mg tablet 7.5 mg PO BID #60 tabs 02/26/25 Unknown Rx lamotrigine 25 mg tablet 25 mg PO QDAY #46 tabs 02/26/25 Unknown Rx sertraline 100 mg tablet 150 mg (1.5 x 100 mg) PO QDAY #45 02/26/25 Unknown Rx tabs cyclobenzaprine 5 mg tablet 5 mg PO TID PRN muscle spasm #14 03/19/25 Unknown Rx tabs lidocaine 5 % topical patch 1 patch topical DAILY #15 ea 03/19/25 Unknown Rx (Lidoderm) Allergy/AdvReac Type Severity Reaction Status Date / Time bee venom protein (honey bee) Allergy Mild Swelling Verified 03/19/25 13:04 bupropion (From Wellbutrin) Allergy Mild Other Verified 03/19/25 13:04 Family History Grandmother Breast cancer Paternal Grandfather Cancer Paternal-Skin Grandmother Colon cancer Maternal Surgical History H/O unilateral salpingectomy Hx of laparoscopy Hx of dilation and curettage Social History housing: apartment current occupational status: employed current occupation: [employer] Smoking Status: Current every day smoker tobacco type: cigarettes alcohol intake: current alcohol intake frequency: holidays/special occasions only substance use type: marijuana seatbelt use: always do you feel safe at home: Yes additional social history: Single ROS ROS ED ROS Narrative Constitutional: Denies fever, chills, headaches, lightness or dizziness Cardiovascular: Denies chest pain or palpitations Respiratory: Denies cough or wheezing shortness of breath Abdomen: Denies nausea vomit diarrhea : Denies any urinary symptoms Neurological: Denies any numbness, weakness, tingling Musculoskeletal: Complains of back pain as noted above states that this radiates to her lower buttock region Skin: Denies any rashes or lesions EXAM Physical Exam Narrative Exam Narrative: General: Patient was lying in bed did appear to be uncomfortable secondary to her back pain Head: Atraumatic, normocephalic Eyes: PERRL bilaterally, EOMI bilateral, no conjunctival injection noted Neck: Soft, supple, trachea midline Cardiovascular: Regular in rhythm no murmurs gallops rubs noted Respiratory: Clear to auscultation bilaterally Abdomen: No tenderness to palpation, soft, nondistended Extremities: +5/5 strength noted in the bilateral upper and lower extremities, radial pulses +2/4 in the bilateral upper extremities Neurological: Patient following commands knew that she was at [facility] year is 2024, no saddle anesthesia noted sensation grossly intact in the bilateral lower extremities Skin: Warm, dry, tact no rashes lesions noted Const Vital Signs: 03/19/25 13:02 Temperature 97.3 F L Temperature Source Temporal Pulse Rate 86 Respiratory Rate 20 H Blood Pressure 127/91 H Blood Pressure Mean 103 Pulse Ox 95 Oxygen Delivery Method Room Air MDM MDM MDM Narrative Medical decision making narrative: Patient is a 29-year-old female who presented to the emergency department the chief complaint of back pain after lifting heavy boxes. On the differential diagnose includes but not limited to musculoskeletal strain, compression fracture although have low suspicion for this as she had no direct trauma or injuries to her lower back. Patient will be given Toradol and Valium. She will be reevaluated. On reevaluation the patient she is feeling much better she would like to go home at this point time. Patient will be given prescriptions for cyclobenzaprine, Lidoderm patches and was advised to rotate Tylenol and ibuprofen [id number]. She is encouraged to return with worsening symptoms or concerns otherwise she is to follow-up with her doctor in the outpatient setting. She is agreeable this plan all question concerns answered she is discharged home in stable condition Discharge Plan Triage Chief Complaint: Back ED Provider: Jeff Malin Dx/Rx/DC Orders Clinical Impression: Back pain, Musculoskeletal strain Prescriptions: New cyclobenzaprine 5 mg tablet 5 mg PO TID PRN (Reason: muscle spasm) Qty: 14 0RF lidocaine [Lidoderm] 5 % adhesive patch,medicated 1 patch topical DAILY Qty: 15 0RF Rx Instructions: leave on most painful area for up to 12 hrs No Action rizatriptan 5 mg tablet,disintegrating translingual ONCE PRN Patient Comments: Take 1 tablet (5 mg) by mouth See administration instructions. At onset of headache, May repeat in 2 hours if unresolved. Do not exceed 20 mg in 24 hours. topiramate 25 mg tablet 75 mg PO DIRECTED sertraline 100 mg tablet 150 mg PO QDAY Qty: 45 1RF lamotrigine 25 mg tablet 25 mg PO QDAY Qty: 46 0RF Rx Instructions: Take 1 tablet daily for 14 days then take 2 tablets daily thereafter buspirone 7.5 mg tablet 7.5 mg PO BID Qty: 60 1RF Primary Care Provider: JASON BATES Referrals: JASON BATES CRNP [Primary Care Provider] - Activity Restrictions/Additional Instructions: Follow-up with your doctor in the outpatient setting and return with worsening symptoms or any other concerns. Rotate Tylenol and ibuprofen [id number] when you do this you can take something every 3 hours. Max dose of Tylenol is 4000 mg max dose of ibuprofen is 3200 mg in 24 hours. Use the Lidoderm patches as prescribed as well as the muscle relaxer cyclobenzaprine. Do not operate anything under the influence of the muscle relaxer can make you sleepy and drowsy. Print Language: Cymraes Disposition Disposition: Home, Self Care
[2025-03-19] MEDS: diazePAM 5 MG Tablet 2.5 MG PO (13:55)
[2025-03-19] MEDS: Ketorolac 30 MG/ML Syringe IM (13:55)
== END 2025-03-19 14:33 | disposition home or self-care (01) ==
PROVIDERS: Emergency Provider Emergency Medicine; PCP Nurse Practitioner Adult Health; Referring Provider Emergency Medicine; Visit Provider Emergency Medicine
DX: S39.012A Strain of muscle, fascia and tendon of lower back, initial encounter (principal); F17.210 Nicotine dependence, cigarettes, uncomplicated; X58.XXXA Exposure to other specified factors, initial encounter
CPT/HCPCS: 96372; 99282

== ENCOUNTER 2025-03-22 16:32 | Emergency (ER) | payer MEDICAID, SELFPAY ==
[2025-03-22 16:33] VITALS: BP 135/102; PULSE 86; RESP 22; TEMP 36.4; O2SAT 99
[2025-03-22] MEDS: Ketorolac 15 MG/ML Vial IV (17:08)
[2025-03-22] MEDS: Ondansetron 4 MG/2 ML Vial IV (17:08)
[2025-03-22] MEDS: Morphine 4 MG/ML Syringe IV (17:08)
[2025-03-22 17:09] VITALS: BMI 41.9
--- NOTE | 2025-03-22 17:18 | EX.ED.DYSGE1 ---
HPI <JERROD Guillermo - Last Filed: 03/22/25 19:20> History of Present Illness Chief Complaint: Back Narrative Narrative: Patient is a 29-year-old female with history of morbid obesity, migraine-like headaches, anxiety, depression who presents to the emergency department for worsening back pain. Patient was seen here on March 19, diagnosed with lumbar strain, given Toradol, Valium, and had relief of symptoms. Patient states that the symptoms are more severe, they are now radiating down both of her legs. She is having difficulty ambulating, feeling that her legs are weak, she denies any bowel or bladder incontinence. Denies any fever or chills. 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 Endometriosis Brain tumor Bowel obstruction Home Medications ?Medication ?Instructions ?Recorded ?Last Taken ?Type rizatriptan 5 mg disintegrating mg translingual ONCE PRN 01/15/25 Unknown History tablet topiramate 25 mg tablet 75 mg PO DIRECTED 01/15/25 Unknown History buspirone 7.5 mg tablet 7.5 mg PO BID #60 tabs 02/26/25 Unknown Rx lamotrigine 25 mg tablet 25 mg PO QDAY #46 tabs 02/26/25 Unknown Rx sertraline 100 mg tablet 150 mg (1.5 x 100 mg) PO QDAY #45 02/26/25 Unknown Rx tabs cyclobenzaprine 5 mg tablet 5 mg PO TID PRN muscle spasm #14 03/19/25 Unknown Rx tabs lidocaine 5 % topical patch 1 patch topical DAILY #15 ea 03/19/25 Unknown Rx (Lidoderm) oxycodone-acetaminophen 5 mg-325 1 tab PO Q8H PRN pain 3 days #10 03/22/25 Unknown Rx mg tablet (Percocet) tabs prednisone 50 mg tablet 50 mg PO DAILY #5 tabs 03/22/25 Unknown Rx Allergy/AdvReac Type Severity Reaction Status Date / Time bee venom protein (honey bee) Allergy Mild Swelling Verified 03/22/25 16:33 bupropion (From Wellbutrin) Allergy Mild Other Verified 03/22/25 16:33 Family History Grandmother Breast cancer Paternal Grandfather Cancer Paternal-Skin Grandmother Colon cancer Maternal Surgical History H/O unilateral salpingectomy Hx of laparoscopy Hx of dilation and curettage Social History housing: apartment current occupational status: employed current occupation: [employer] Smoking Status: Current every day smoker tobacco type: cigarettes alcohol intake: current alcohol intake frequency: holidays/special occasions only substance use type: marijuana seatbelt use: always do you feel safe at home: Yes additional social history: Single ROS <JERROD Guillermo - Last Filed: 03/22/25 19:20> ROS ED ROS Narrative Constitutional: Negative for fever, chills, weight loss, weakness Eyes: Negative for vision loss, vision change, double vision ENT: Negative for any sore throat, ear pain, congestion Cardiovascular: Negative for any chest pain, tightness, palpitations Respiratory: Negative for any cough, sputum production, hemoptysis, dyspnea, dyspnea on exertion, orthopnea Gastrointestinal: Negative for any abdominal pain, nausea, vomiting, diarrhea, constipation, blood in stool, blood in vomit : Negative for any urinary frequency, dysuria, retention, blood in urine Muscle skeletal: Negative for any neck pain. Positive for lower back pain that radiates to bilateral legs Neurological: Negative for any headache, syncope, dizziness Skin: Negative for any rashes, itching, abrasions, lacerations Psychiatric: Negative for any depression, anxiety, stress, suicidal ideation, homicidal ideation Hematologic: Negative for any excessive bruising, easy bleeding EXAM <JERROD Guillermo - Last Filed: 03/22/25 19:20> Physical Exam Narrative Exam Narrative: Vital signs reviewed. On my initial evaluation of the patient was laying on her back with her knees flexed crying. Any sort of movement she did with her legs or rolling to her her side, patient did scream out in pain. Patient does have a 42 BMI Abdomen: Soft, nontender, nondistended. No abdominal bruit or pulsatile masses. No hepatosplenomegaly Extremities: No peripheral edema, no signs of gross trauma or deformity. Active full range of motion of all extremities. Neuro: Cranial nerves II through XII intact, no focal neurological deficits. Skin: Clean dry and intact with no rash, purpura, petechiae, vesicles or pustules. Backs/flank: No CVA tenderness, no midline spinal tenderness, no deformity. With any touching of the patient's lower back, left upper gluteal area, patient scream out in pain. Patient is able to flex and extend her hips however this does cause great discomfort. There is no numbness or tingling, patient has no difficulty plantarflexion, dorsiflexing. Psych: Normal mood and affect. No SI, HI or acute psychosis. Const Vital Signs: 03/22/25 16:33 Temperature 97.6 F L Temperature Source Temporal Pulse Rate 86 Respiratory Rate 22 H Blood Pressure 135/102 H Blood Pressure Mean 113 Pulse Ox 99 Oxygen Delivery Method Room Air Positive obese Nutritional Appearance: obese <Dr. Bertha Hall DO - Last Filed: 03/26/25 14:31> Physical Exam Const Vital Signs: 03/22/25 16:33 Temperature 97.6 F L Temperature Source Temporal Pulse Rate 86 Respiratory Rate 22 H Blood Pressure 135/102 H Blood Pressure Mean 113 Pulse Ox 99 Oxygen Delivery Method Room Air MDM <JERROD Guillermo - Last Filed: 03/22/25 19:20> MDM Radiography Diagnostic Testing: Clinical Impression(s) from Imaging Studies Lumbar Spine X-Ray 03/22/25 18:35 IMPRESSION: NEGATIVE LUMBAR SPINE. Reading Location: [id number] Treatment and Re-Evaluation :: Differential diagnosis includes however is not limited to: Spinal abscess, cauda equina disease, sciatica, lumbar radiculopathy, Patient on my initial evaluation was crying, saying that any sort of movement causes her severe pain. On my physical examination, patient did seem to be in pain however do not see any neurological focal deficits. Patient will have an IV established, patient be given IV Toradol Zofran as well as morphine. Patient on reevaluation was feeling much improved. Patient did receive x-rays to the lower lumbar spine. All radiologic examinations were read, reviewed by the emergency department attending. From these reads, a plan of care will be put in place. X-ray of the lower lumbar spine is negative for any acute process. Patient on reevaluation was feeling improved. Patient be given oral steroids as well as pain medicine for home. Instructed follow-up with Dr. Carreon from orthopedics. <Dr. Bertha Hall, DO - Last Filed: 03/26/25 14:31> MDM Radiography Diagnostic Testing: Clinical Impression(s) from Imaging Studies Lumbar Spine X-Ray 03/22/25 18:35 IMPRESSION: NEGATIVE LUMBAR SPINE. Reading Location: [facility] Treatment and Re-Evaluation :: Differential diagnosis includes however is not limited to: Spinal abscess, cauda equina disease, sciatica, lumbar radiculopathy, Patient on my initial evaluation was crying, saying that any sort of movement causes her severe pain. On my physical examination, patient did seem to be in pain however do not see any neurological focal deficits. Patient will have an IV established, patient be given IV Toradol Zofran as well as morphine. Patient on reevaluation was feeling much improved. Patient did receive x-rays to the lower lumbar spine. All radiologic examinations were read, reviewed by the emergency department attending. From these reads, a plan of care will be put in place. X-ray of the lower lumbar spine is negative for any acute process. Patient on reevaluation was feeling improved. Patient be given oral steroids as well as pain medicine for home. Instructed follow-up with Dr. Carreon from orthopedics. I have personally performed a face to face assessment of the patient and have reviewed the JOSIAH Note. I performed a substantive portion of the visit including all aspects of the following. My ritter findings include: History is patient a 29-year-old female with history of anxiety presenting with worsening low back pain. Patient was seen and evaluated in our ER 3 days prior for acute low back pain. Denies any significant injury and has been very active and cleaning when it started. Had been prescribed Flexeril 5 mg with no significant improvement. Is having worsening pain feels like she cannot ambulate and cannot get comfortable. Upon initial arrival patient is quite tearful and distressed secondary to her pain. She denies any bowel or bladder incontinence or symptoms consistent with cauda equina syndrome. States the pain is bilaterally but is worse on the left leg. Does note radiation of pain with some paresthesias down the leg but does not have any weakness. She is given a dose of IV Toradol, Zofran and morphine. On repeat evaluation she is more comfortable and calm her. She does not have any significant midline tenderness at this time. Pain seems to be most consistent with a left-sided sciatica she has a positive contralateral straight leg test. She does not have any foot drop and has preserved strength with plantar and dorsiflexion. Sensation intact to light touch however she does report subjective paresthesias to the left leg. Lumbar x-ray obtained which does not show any acute process. Patient able to ambulate. Do not think she requires emergent MRI or admission for pain control. Is given outpatient follow-up with orthopedics/spine. Will be started on a prednisone taper. She does go on to tell me that she had stopped taking her NSAIDs because she was not sure if she could mix that with her Flexeril. Counseled that she should not take prednisone and steroids at the same time but is okay to take NSAIDs with muscle muscle relaxers. Is given a short course of oxycodone for pain control as well. Other additions or changes: [None] Discharge Plan Triage Chief Complaint: Back ED Midlevel Provider: Tate Brown ED Provider: Bertha Hall Dx/Rx/DC Orders Clinical Impression: Acute lumbar myofascial strain, Lumbar radiculopathy Instructions: Understanding Lumbosacral Strain, Sciatica Exercise, ED Sciatica Prescriptions: New prednisone 50 mg tablet 50 mg PO DAILY Qty: 5 0RF oxycodone-acetaminophen [Percocet] 5-325 mg tablet 1 tab PO Q8H PRN (Reason: pain) 3 Days Qty: 10 0RF No Action rizatriptan 5 mg tablet,disintegrating translingual ONCE PRN Patient Comments: Take 1 tablet (5 mg) by mouth See administration instructions. At onset of headache, May repeat in 2 hours if unresolved. Do not exceed 20 mg in 24 hours. topiramate 25 mg tablet 75 mg PO DIRECTED sertraline 100 mg tablet 150 mg PO QDAY Qty: 45 1RF lamotrigine 25 mg tablet 25 mg PO QDAY Qty: 46 0RF Rx Instructions: Take 1 tablet daily for 14 days then take 2 tablets daily thereafter buspirone 7.5 mg tablet 7.5 mg PO BID Qty: 60 1RF cyclobenzaprine 5 mg tablet 5 mg PO TID PRN (Reason: muscle spasm) Qty: 14 0RF lidocaine [Lidoderm] 5 % adhesive patch,medicated 1 patch topical DAILY Qty: 15 0RF Rx Instructions: leave on most painful area for up to 12 hrs Primary Care Provider: JASON BATES Referrals: Tom [Other] Freeman Carreon MD [Med Staff - Active Staff] - JASON BATES CRNP [Primary Care Provider] - Activity Restrictions/Additional Instructions: Please follow-up outpatient Print Language: [place] Disposition Disposition: Home, Self Care Discharge Date/Time: 03/22/25 19:29
--- NOTE | 2025-03-22 18:35 | RAD_ITS ---
PROCEDURE: LUMBAR SPINE 2 OR 3 VIEWS 03/22/2025 REASON FOR EXAM: BACK PAIN TECHNIQUE: 2 view(s) of the lumbar spine FINDINGS: Vertebrae: No acute fracture. Discs: Disc space heights are preserved. Alignment: Anatomic alignment. Other: RAD/Lumbar Spine 2 or 3 Views IMPRESSION: NEGATIVE LUMBAR SPINE. Reading Location: [id number]
[2025-03-22] MEDS: HYDROcodone Bitartrate/Apap 5/325 Tablet PO (19:26)
[2025-03-22] MEDS: predniSONE 20 MG Tablet 40 MG PO (19:26)
[2025-03-22 19:28] VITALS: BP 129/79; PULSE 80; RESP 19; TEMP 36.4; O2SAT 99
== END 2025-03-22 19:29 | disposition home or self-care (01) ==
PROVIDERS: Emergency Provider Emergency Medicine; PCP Nurse Practitioner Adult Health; Visit Provider Emergency Medicine
DX: S39.012A Strain of muscle, fascia and tendon of lower back, initial encounter (principal); M54.16 Radiculopathy, lumbar region; F17.210 Nicotine dependence, cigarettes, uncomplicated; X58.XXXA Exposure to other specified factors, initial encounter
CPT/HCPCS: 72100; 96374; 96375; 96376; 99284; J2405

== ENCOUNTER 2025-04-28 09:39 | Day surgery (SDC) | payer MEDICAID, SELFPAY ==
--- NOTE | 2025-04-24 07:27 | EKG12_ITS ---
Test Reason : PREOP Blood Pressure : */* mmHG Vent. Rate : 77 BPM Atrial Rate : 77 BPM P-R Int : 170 ms QRS Dur : 84 ms QT Int : 346 ms P-R-T Axes : 50 -8 14 degrees QTcB Int : 391 ms Normal sinus rhythm Low voltage QRS Borderline ECG Confirmed by SAIGE FARAH ([id number]), social media editor MULUGETA FOSTER ([id number]) on 04/27/2025 8:12:37 AM Referred By: Freeman Carreon Confirmed By: SAIGE FARAH
[2025-04-24 08:40] LABS: Hemoglobin A1c 5.3 % (<=5.6)
[2025-04-24 09:19] LABS: HIV Nonreactive (Nonreactive); Hepatitis C Antibody Nonreactive (Nonreactive)
[2025-04-24 09:46] LABS: International Normalized Ratio 0.9; Prothrombin Time (Protime)PT. 12.7 SECONDS (11.7-14.9)
[2025-04-24 09:47] LABS: Partial Thromboplast Time 32.6 Seconds (24.1-36.2)
[2025-04-24 09:50] LABS: Hepatitis B Surface Antibody Indetermin
--- NOTE | 2025-04-24 14:20 | PAT.ANE_ITS ---
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 When Was Last Pacemaker Check QUESTION #4 FULL TEXT: You/Your Family Experience fever (hyperthermia) with Anesthesia Last Oral Intake Last Oral intake: Last Oral Intake NPO since Meds taken in AM with sips of water? 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 Female Yes 04/22/25 10:02 HX of Motion Sickness No 04/22/25 10:02 HX of N/V After Surgery No 04/22/25 10:02 Non-Smoker No 04/22/25 10:02 Duration of Surgery greater Yes 04/22/25 10:02 than 60 minutes Number of Risk Factors 2 04/22/25 10:02 PONV Score Moderate Risk 04/22/25 10:02 Height & Weight Height & Weight: Anesthesia: Height & Weight Height 5 ft 8 in 04/07/25 14:17 Respiratory Assessment Respiratory Assessment - livestock ranch hand: Respiratory Tract Infection Hx - livestock ranch hand Hx Respiratory Tract Infection No 04/22/25 10:02 STOP Sleep Apnea STOP Sleep Apnea - livestock ranch hand: STOP Sleep Apnea - livestock ranch hand Hx Hypertension No 04/22/25 10:02 Hx Sleep Apnea No 04/22/25 10:02 CPAP No 04/07/25 14:17 BIPAP No 04/07/25 14:17 Do you snore loudly (louder Yes 04/22/25 10:02 than talking or can be heard Do you often feel tired/ No 04/22/25 10:02 fatigued/ sleepy during daytime? Has anyone observed you stop No 04/22/25 10:02 breathing during sleep? STOP Results Negative 04/22/25 10:02 QUESTION #5 FULL TEXT : Do you snore loudly (louder than talking or can be heard through closed doors)? 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 Specify any problems Hx of Preganancy in last 3 No 04/22/25 10:02 Months Nurse Filling Out Transfusion DSCHRIBER 04/22/25 10:02 & Questions: Date: 04/22/25 04/22/25 10:02 Time: 10:03 04/22/25 10:02 Patient unable to answer at this time (ie. 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 Endometriosis Brain tumor Home Medications ?Medication ?Instructions ?Recorded ?Last Taken ?Type rizatriptan 5 mg disintegrating 5 mg translingual ONCE PRN 01/15/25 Unknown History tablet migraine headache diclofenac sodium 75 mg 75 mg PO BID 04/02/25 Unknow n History tablet,delayed release buspirone 7.5 mg tablet 7.5 mg PO BID #180 tabs 08/20 Unknown Rx lamotrigine 25 mg tablet 50 mg (2 x 25 mg) PO QDAY #1 80 tabs 04/03/25 Unknown Rx sertraline 100 mg tablet 150 mg (1.5 x 100 mg) PO QDA Y #135 04/03/25 Unknown Rx tabs cyclobenzaprine 10 mg tablet 10 mg PO TID PRN muscle s pasm 04/22/25 Unknown History Allergy/AdvReac Type Severity Reaction Status Date / Time bee venom protein (honey bee) Allergy Mild Swelling Verified 04/22/25 09:58 bupropion (From Wellbutrin) Allergy Mild Other Verified 04/22/25 09:58 Family History Grandmother Breast cancer Paternal Grandfather Cancer Paternal-Skin Grandmother Colon cancer Maternal Surgical History (Updated 04/22/25 @ 10:14 by Heike Wilson) H/O unilateral salpingectomy Hx of laparoscopy Hx of dilation and curettage Social History housing: apartment current occupational status: employed 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 Normal sinus rhythm. Low voltage QRS. Recommendation Anesthesia Recommendation Anesthesia recommendation: OPTIMIZED for anesthesia
[2025-04-25 05:07] LABS: Hepatitis A AB, Total Negative (Negative)
[2025-04-28] VITALS (14 sets, daily range): BP systolic 95–155; BP diastolic 52–99; PULSE 67–99; RESP 15–22; TEMP 36.2–36.9; O2SAT 92–99; BMI 42.5
[2025-04-28 10:20] LABS: Internal QC Validated? YES +Cl - CLEAR BKGD; Pregnancy, Urine Negative Negative
[2025-04-28] MEDS: Lactated Ringers 1,000 ML 15 ML IV (10:20)
[2025-04-28] MEDS: Magnesium 1 GM over 15 mins IV (10:21)
[2025-04-28] MEDS: Acetaminophen 500 MG Tablet 1000 MG PO (10:25)
--- NOTE | 2025-04-28 10:46 | PRE.ANES_ITS ---
ASA Classification* ASA Classification ASA Classification: 3 Assessment & Plan Anesthesia* Anesthesia Assessment Anesthesia Assessment: Discussed sedation and/or anesthesia options, risks, benefits, and alternatives with patient/parents/legal guardian/POA. Questions invited. The patient/parents/legal guardian/POA seems to understand and agrees to proceed with anesthesia plan. Reviewed the physical assessment, medical history, allergy history and patient home medications list prior to surgery/procedure/anesthetic and documented any changes. Performed airway and anesthesia risk assessments. Anesthesia Type Anesthesia Type: General History Source History Obtained from:: Patient and Chart Anesthesia Focused Assessment* Temperature: 98.4 F Pulse Rate: 80 Blood Pressure: 115/79 Respiratory Rate: 18 Pulse Ox: 98 Oxygen Delivery Method: Room Air Airway Assessment Mouth opens: >3 cm Mallampati Score: III Teeth Condition: Missing (Patient has several missing teeth. Rest are tight.) Neck Range of motion (ROM): Full ROM Focused Labs Anesthesia Preop lab: CBC WBC 11.8 K/mm3 (4.4-11.0) H 09/08/24 20:45 4 RBC 4.36 M/mm3 (4.2-5.4) 09/08/24 20:45 09/08/24 Hgb 14.4 g/dL (12.0-15.0) 09/08/24 20:45 09/08/24 Hct 42.7 % (37-47) 09/08/24 20:45 09/08/24 Plt Count 292 K/mm3 (150-450) 09/08/24 20:45 09/08/24 CHEMISTRY Potassium 3.9 mmol/L (3.5-5.1) 09/08/24 20:45 09/08/24 Sodium 138 mmol/L (136-145) 09/08/24 20:45 09/08/24 Magnesium 2.0 mg/dL (1.5-2.2) 04/24/25 07:44 04/24/25 BUN 7 mg/dL (7-18) 09/08/24 20:45 09/08/24 Creatinine 0.67 mg/dL (0.55-1.02) 09/08/24 20:45 09/08/24 Glucose 80 mg/dL (74-106) 09/08/24 20:45 09/08/24 COAG PT 12.7 SECONDS (11.7-14.9) 04/24/25 07:44 HCG, Quant 1441 mIU/mL (1-3) H 03/05/24 21:15 03/05/24 Urine Test Negative Negative 04/28/25 09:50 04/28/25 Pre-Assessment Diagnosis/Proposed Procedure Planned Operative Procedure(s): ERAS DISCECTOMY LEFT L5-S1 Anesthesia History 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 When Was Last Pacemaker Check QUESTION #4 FULL TEXT: You/Your Family Experience fever (hyperthermia) with Anesthesia Last Oral Intake Last Oral intake: Last Oral Intake NPO since 07:00 04/28/25 10:04 Meds taken in AM with sips of Yes 04/28/25 10:04 water? Meds patient instructed to take am of surgery Any additional information?: Yes Meds taken in AM with sips of water?: Yes PONV PONV - transmission calibration engineer: PONV - transmission calibration engineer Female Yes 04/22/25 10:02 HX of Motion Sickness No 04/22/25 10:02 HX of N/V After Surgery No 04/22/25 10:02 Non-Smoker No 04/22/25 10:02 Duration of Surgery greater Yes 04/22/25 10:02 than 60 minutes Number of Risk Factors 2 04/22/25 10:02 PONV Score Moderate Risk 04/22/25 10:02 Height & Weight Height & Weight: Anesthesia: Height & Weight Height 5 ft 8 in 04/28/25 10:04 Weight: 127 kg 04/28/25 10:04 Body Mass Index (BMI) 42.5 04/28/25 10:04 Respiratory Assessment Respiratory Assessment - transmission calibration engineer: Respiratory Tract Infection Hx - transmission calibration engineer Hx Respiratory Tract Infection No 04/22/25 10:02 STOP Sleep Apnea STOP Sleep Apnea - transmission calibration engineer: STOP Sleep Apnea - transmission calibration engineer Hx Hypertension No 04/22/25 10:02 Hx Sleep Apnea No 04/22/25 10:02 CPAP No 04/07/25 14:17 BIPAP No 04/07/25 14:17 Do you snore loudly (louder Yes 04/22/25 10:02 than talking or can be heard Do you often feel tired/ No 04/22/25 10:02 fatigued/ sleepy during daytime? Has anyone observed you stop No 04/22/25 10:02 breathing during sleep? STOP Results Negative 04/22/25 10:02 QUESTION #5 FULL TEXT : Do you snore loudly (louder than talking or can be heard through closed doors)? 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 Specify any problems Hx of Preganancy in last 3 No 04/22/25 10:02 Months Nurse Filling Out Transfusion DSCHRIBER 04/22/25 10:02 & Questions: Date: 04/22/25 04/22/25 10:02 Time: 10:03 04/22/25 10:02 Patient unable to answer at this time (ie. confused, unrespo /Reproduction History /Reproductive History - transmission calibration engineer: /Reproductive Hx- transmission calibration engineer Hx Now No 04/22/25 10:02 Gestational Age (in weeks): EDC: Hx Hx Para Hx Section SAB No 04/22/25 10:02 Active Medications Active Medications: Current Medications Generic Name Dose Route Start Last Admin Trade Name Maryuri PRN Reason Stop Dose Admin Acetaminophen 1,000 mg 04/28/25 11:45 04/28/25 10:25 Acetaminophen 500 Mg Tablet PO 04/28/25 11:46 1,000 mg PREOP ONE Administration Cefazolin Sodium 3 gm/ Sodium 115 mls @ 150 mls/hr 04/28/25 11:45 Chloride IV 04/28/25 12:30 INTRAOP ONE Tranexamic Acid 1,000 mg/ 110 mls @ 440 mls/hr 04/28/25 11:45 Sodium Chloride IV 04/28/25 11:59 INTRAOP ONE Tranexamic Acid 1,000 mg/ 110 mls @ 440 mls/hr 04/28/25 11:45 Sodium Chloride IV 04/28/25 11:59 INTRAOP ONE Magnesium Sulfate 1 gm/ 102 mls @ 408 mls/hr 04/28/25 11:45 04/28/25 10:21 Dextrose IV 04/28/25 11:59 408 mls/hr INTRAOP ONE Administration Lactated Ringer's 1,000 mls @ 15 mls/hr 04/28/25 09:45 04/28/25 10:20 IV 15 mls/hr .Q48H NATE Administration Insulin Human Lispro 1 - 6 unit 04/28/25 11:45 Insulin Lispro 100 Unit/Ml Insuln.Pen SC Q4H PRN PRN BG>/= 180, SEE PROTOCOL Protocol PFSH Medical History Wears glasses Depression Anxiety Alcohol use History of steroid therapy Arthritis Anemia Easy bruising Back pain Migraine headache Syncope Heartburn Smoker Leg cramps History of pain when walking History of edema History of normal Holter exam Cardiology follow-up encounter Hx of pilonidal cyst Hemoperitoneum due to rupture of left tubal ectopic Endometriosis Brain tumor Home Medications ?Medication ?Instructions ?Recorded ?Last Taken ?Type rizatriptan 5 mg disintegrating 5 mg translingual ONCE PRN 01/15/25 Unknown History tablet migraine headache diclofenac sodium 75 mg 75 mg PO BID 04/02/25 History tablet,delayed release buspirone 7.5 mg tablet 7.5 mg PO BID #180 tabs 05/0 08/2004/28/25 Rx lamotrigine 25 mg tablet 50 mg (2 x 25 mg) PO QDAY #1 80 tabs 04/03/25 04/27/25 Rx sertraline 100 mg tablet 150 mg (1.5 x 100 mg) PO QDA Y #135 04/03/25 04/28/25 Rx tabs cyclobenzaprine 10 mg tablet 10 mg PO TID PRN muscle s pasm 04/22/25 04/27/25 History Allergy/AdvReac Type Severity Reaction Status Date / Time bee venom protein (honey bee) Allergy Mild Swelling Verified 04/28/25 10:03 bupropion (From Wellbutrin) Allergy Mild Other Verified 04/28/25 10:03 Family History Grandmother Breast cancer Paternal Grandfather Cancer Paternal-Skin Grandmother Colon cancer Maternal Surgical History H/O unilateral salpingectomy Hx of laparoscopy Hx of dilation and curettage Social History housing: apartment current occupational status: employed current occupation: [employer] Smoking Status: Current every day smoker tobacco type: cigarettes alcohol intake: current alcohol intake frequency: holidays/special occasions only substance use type: marijuana seatbelt use: always do you feel safe at home: Yes additional social history: Single Review of Systems (Anesthesia) ROS Narrative System reviewed and no additional complaints, except as documented.
--- NOTE | 2025-04-28 11:45 | RAD_ITS ---
PROCEDURE: LUMBAR SPINE 2 OR 3 VIEWS 04/28/2025 REASON FOR EXAM: ERAS, DISCECTOMY LEFT L5-S1, ENDOSCOPIC TECHNIQUE: Fluoroscopy. COMPARISON: 04/02/2025. FINDINGS: Fluoroscopy was performed with 38.3 seconds of fluoroscopic time. 58.56 mGy. No evidence of acute complication with discectomy. RAD/Lumbar Spine 2 or 3 Views IMPRESSION: As above. Reading Location: [id number]
[2025-04-28 11:47] LABS: Bedside Glucose 96 mg/dL (74-106)
--- NOTE | 2025-04-28 12:02 | PCM.HP.BLA ---
History and Physical MR#: [id number] Acct: [id number] Name: NAN BEST Rep #: [id number] : 1995 Provider: Dr. Freeman Carreon MD Age/Sex: 29/F Location: [facility] Status: Signed Intake Vital Signs 04/07/2514:17 04/16/2513:12 Height 5 ft 8 in 5 ft 8 in Weight: 290 lb BMI 44.1 Intake Visit Reasons: lumbar spine Chief Complaint: Pre op visit Accompanied by: Friend Is patient in pain?: Yes Pain scale (1-10): 6 Allergies bee venom protein (honey bee) Allergy (Mild, Verified 04/16/25 13:15) Swellingbupropion (From Wellbutrin) Allergy (Mild, Verified 04/16/25 13:15) Other Medications ?Medication ?Instructions ?Recorded ?Confirmed ?Type rizatriptan 5 mg disintegrating mg translingual ONCE PRN 01/15/25 04/16/25 History tablet topiramate 25 mg tablet 75 mg PO DIRECTED 01/15/25 04/16/25 History cyclobenzaprine 5 mg tablet 5 mg PO TID PRN muscle spasm #30 04/02/25 04/16/25 Rx tabs diclofenac sodium 75 mg 75 mg PO BID 04/02/25 04/16/25 History tablet,delayed release buspirone 7.5 mg tablet 7.5 mg PO BID #180 tabs 04/03/25 04/16/25 Rx lamotrigine 25 mg tablet 50 mg (2 x 25 mg) PO QDAY #180 tabs 04/03/25 04/16/25 Rx sertraline 100 mg tablet 150 mg (1.5 x 100 mg) PO QDAY #135 04/03/25 04/16/25 Rx tabs Have you fallen in the past year?: No PFSH Medical History Hemoperitoneum due to rupture of left tubal ectopic Endometriosis Brain tumor Bowel obstruction Surgical History H/O unilateral salpingectomy Hx of laparoscopy Hx of dilation and curettage Family History Grandmother Breast cancer PaternalGrandfather Cancer Paternal-SkinGrandmother Colon cancer Maternal Social History housing: apartment current occupational status: employed current occupation: [employer] house Smoking Status: Current every day smoker tobacco type: cigarettes alcohol intake: current alcohol intake frequency: holidays/special occasions only substance use type: marijuana seatbelt use: always do you feel safe at home: Yes additional social history: Single HPI lumbar spine Details: This documentation accurately reflects the service provided and the decisions made by me, Dr. Freeman Carreon MD 04/16/25 1312. Part of today?s visit was documented by Ayan Mosquera MA, acting as scribe. NAN BEST is a 29 year old F here today for pre op visit. Patient denies any recent injections or physical therapy. She states that she is having pain in the lower back and in the gluteus. Patient states that she is having numbness and tingling in the left foot and toes. She had an episode yesterday where her left arm and the left side of the face went completely numb. That was in the afternoon yesterday, it didn't last very long. She states that the right side went numb 3 days ago. Patient denies any diabetes, or blood thinners. 04/14/25: NAN BEST is a 29 year old F here today for lumbar spine MRI review. Patient notes that she continues to have pain. Her pain is over her low back and down into her left leg. She also complains of numbness into her left leg as well. She states that she has a tightness/rubber band feeling into her left foot. She stood up and heard a pop, and then burning got worse. Patient denies any recent injections. She had an MRI at [facility]. She is taking Tylenol, muscle relaxer and anti-inflammatory for pain. HPI from 04/02/25: NAN BEST is a 29 year old F here today for low back pain that has been worsening 2 weeks now. The patient initially had a flare of pain in December. She does have pain that radiates down her left leg along with numbness/tingling. She does with an antalgic gait due to the leg pain. The patient has a left sided leg numbness and pain down the back of the left leg. Patient also has a left-sided anthony and calf numbness that extends to her left foot. She states that 2 weeks ago she went to the ED for her pain where she was given a muscle relaxer which did help some then 4 days later she was having increased pain and was given a few days worth of oxycodone. The ED also gave her several days of prednisone 50 mg. She has finished this medication. She states that the longer she stands or is on her feet the worse the numbness gets. She has done PT in the past a few years ago which did not help with her pain. Her last physical therapy was 2 years ago for her shoulders which included neck strengthening as well. At that point she was recommended to get a breast reduction but she has to wait until she gets her weight to a ceratin number. She denies injections. She does have balance issues and leg weakness in the left leg. She has noticed that in her torso she leans to the left side and when this happens it feels like her hips out of place. She is also taking diclofenac for the pain which does take the edge off her pain some. She did have xrays done on 03/22/25. No diabetes, no heart or lung issues, no blood thinners. No prior surgeries of the back. Ortho Exam General General: Yes distressed Neurologic: Yes alert and Yes oriented x3 Spine SPINE TESTING CERVICAL THORACIC LUMBAR Musculoskeletal Strength 0=absent - 5=normal Details: Neurological exam of the lower extremities shows grade 3 left dorsiflexion and 4+ plantar flexion, all other muscle groups show 5 power however the patient does have an increased pain with left knee extension and left hip flexion. Normal sensations across all dermatomes. No hyperreflexia. There is mild midline and left-sided paraspinal tenderness. Physical examination of the back shows well-healed midline incision from a cyst removal. The patient remained standing and leaning forward for the duration of her appointment due to pain. Coding Level of Care Code Off vis,est,level 4 Diagnoses Lumbar radiculopathy M54.16 Time Spent (min) 35 Assessment and Plan Assessment and Plan (1) Lumbar radiculopathy: Status: Acute Plan Again reviewed prior x-rays show a disc height loss at L5-S1. Prior AP and lateral x-rays also show a left sided tilt. There is no instability on dynamic views. Reviewed lumbar MRI from April 10, 2025 which shows a large disc extrusion at L5-S1 with inferior migration into the exit of the traversing left S1 nerve root resulting in high-grade severe canal stenosis. Explained the imaging findings in detail. At this time due to the patient's severe low back pain as well as her decrease in strength in the left leg as a result of the pain and based on the MRI findings with the severe disc extrusion at L5-S1 resulting in severe stenosis discussed an L5-S1 microdiscectomy. Explained the risks and benefits of this procedure. Explained the procedure in detail. At this time the patient wishes to proceed with the L5-S1 microdiscectomy. The patient did initially start having pain in December 2024 however over the last 3 weeks her pain had significantly worsened. This pain resulted in her going to the ER on multiple occasions, she has tried different medications including ibuprofen and Tylenol [id number] as well as muscle relaxers with no benefit. The ER has also tried other medications which include oxycodone and prednisone once again without any benefit. Discussed all risk benefits and alternatives of the procedure. The risks include but are not limited to infection, bleeding, injury to nerves and vessels, hematoma formation, need for further surgery, need for fusion in the future, continued disc degeneration, persistent pain, persistent numbness and weakness, DVT, pulm embolism, pneumonia, atelectasis, cardiopulmonary event. Patient understands and agrees to proceed with surgery. Consent was signed.
[2025-04-28] MEDS: Cefazolin 3 GM in 0.9% Normal Saline (100mL Bag) 100 ML IV (12:11)
[2025-04-28] MEDS: TRANEXAMIC ACID 1,000 MG in 0.9% Normal Saline (100mL Bag) 100 ML 440 MG IV ×2 (12:44→14:44)
[2025-04-28] MEDS: Dexamethasone IV Preserv Free 10 MG/ML VIAL OPERA.SITE (14:44)
[2025-04-28] MEDS: Bupiv/Epi 0.25% 30 ML Vial INFILT (15:01)
--- NOTE | 2025-04-28 15:13 | OP.PCM_ITS ---
Procedures Musculoskeletal [id number]: Other Procedure See Report Operative Report (Standard) Operative Information Date of Procedure: 04/28/25 Pre-Operative Diagnosis: L5-S1 large left disc herniation with inferior migration, radiculopathy, stenosis with neurogenic claudication Post-Operative Diagnosis: same Surgery/Procedure Performed: L5-S1 left laminotomy, discectomy, S1 nerve root and dural sac decompression projector booth operator: Yes Final Operations Technician: Tova Fry Tasks completed by ambulance assistant: Closing, Removing tissue, Hemostasis: Electrocautery and Retracting Type of Anesthesia: General RN Documented Start/Stop Times: Operation Date: 04/28/25 11:45 Case Time Into Pre-Op 04/28/25 09:42 Anesthesia Start 04/28/25 12:11 Into Room 04/28/25 12:11 Out of Pre-Op 04/28/25 12:11 Procedure Start 04/28/25 12:46 Procedure End 04/28/25 15:04 Procedure Start Time: 12:46 Procedure Stop Time: 15:04 Select all DRAINS/GRAFTS/IMPLANTS that apply: None Estimated Blood Loss: 20 cc Specimen collected: No Description of surgery: Preoperative diagnosis: L5-S1 large left disc herniation with inferior migration, radiculopathy, stenosis with neurogenic claudication Postoperative diagnosis: Same Name of procedure: L5-S1 left laminotomy, discectomy, S1 nerve root and dural sac decompression CPT 09478 Attending Surgeon: Dr. Freeman Carreon Estimated blood loss: 20 mL Anesthesia: General Indications: Patient is a 29-year-old lady who presented with low back pain and severe left lower extremity radiation, difficulty walking distances. MRI revealed L5-S1 Left large paracentral disc herniation with inferior migration going up to the bottom of the S1 body causing severe central and left lateral recess stenosis. All options of treatment were discussed which included continued nonoperative treatment measures like rest physical therapy, injections. After prolonged nonsurgical treatment, patient requested surgical intervention for decompression surgery. All risks and benefits associated with the procedure were explained to the patient. The risks include but are not limited to infection, bleeding, injury to nerves and vessels, persistent paresthesia, incidental dural tear, recurrent disc herniation, spinal instability and need for fusion or other procedures in future, persistent pain, persistent weakness and numbness, etc. Procedure: The patient was identified in the preoperative holding suite using Unique patient identifiers. Skin was marked, consent was reviewed, and all questions were answered. The patient was then brought back to the operative room. A surgical timeout was performed to make sure correct procedure was being done on the correct patient and all operative room staff were on the same page. General endotracheal anesthesia was then given to the patient. The patient was then turned prone onto a Giovanny table over a Jay frame. The back was prepped and draped in usual fashion. Preoperative antibiotic was given. A final timeout was then again done just before starting the procedure. Incision was marked based on AP and lateral views of C-arm. An incision was then carried out approximately 1 inch length just to the left of the midline. Bovie was utilized to dissect through the subcutaneous tissue up to the fascia. The fascia was bovied at the spinous process. Subperiosteal dissection was carried out along the left side of the spinous process and the lamina. This dissection was stopped at the level of the medial capsule of the facet joint. Lateral edge of the pars was also identified. C-arm lateral view confirmed the level. The level was confirmed to be the L5-S1 interspace. A Dent retractor of appropriate depth was then placed to provide retraction throughout the remainder of the surgery. A umm was then utilized to make a laminotomy window medial to the facet and lateral to the spinous process. Care was taken to preserve at least 1 cm of bone from the lateral border of the pars. Once the bone was thinned out a Kerrison rongeur was utilized to complete the laminotomy. The ligamentum flavum was then removed with the help of pituitaries and Kerrison rongeurs. Ligamentum flavum in the lateral recess was then removed with Kerrison rongeur. Superior portion of the S1 lamina was also resected with the help of Kerrison rongeurs. Medial facetectomy was also performed as the S1 nerve root was pushed laterally by the axillary disc herniation. The dura and traversing nerve root were then identified with the help of a [place] #4. A large protrusion of disc material was found in the axilla of the S1 nerve root. Ball-tipped nerve hook was then utilized to free up the fragment. Significant adhesions were noticed over the ventral aspect of the dural sac and the herniated disc going far below into the S1 level. The adhesions were carefully teased off. The herniated disc fragment was then removed as a large single piece. S1 nerve root was then found to be much better retractable after removal of this disc fragment. A nerve root retractor was then utilized to retract the dura and the traversing nerve root medially. A cruciate incision over the annulus was performed. Disc fragments were then Removed from the disc space. The nerve hook and Dodge were then used to probe inferiorly and superiorly and medially to tease out more disc fragments. Further loose disc fragments from the disc space were also removed with help of pituitary. Irrigation of the disc space through an Angiocath was performed to remove any further loose disc fragments. Adequate decompression of the dural sac at the S1 level as well as the S1 traversing nerve root going to the S1 foramen was then performed by doing a foraminotomy. Once adequate decompression was obtained by removal of all loose disc fragments including the ones that were extruded, irrigation was done with normal saline. Hemostasis was achieved with the help of Floseal and cotton patties. Valsalva maneuver was performed to rule out CSF leak as significant dissection was performed to the exit of the nerve root. No CSF leak was identified by Valsalva maneuver or visualized intraoperatively. 10 mg of preservative-free dexamethasone was then sprinkled over the traversing nerve root. A small piece of Gelfoam was then placed over the bony window. The Dent retractor was then removed. And closure was done in layers, 0 Vicryl for the deep fascia, 2-0 Vicryl for subcutaneous tissue, and 4-0 Monocryl for the skin. The deep fascial layer was closed in a watertight fashion with interrupted 0 Vicryl. The skin closure was augmented with Dermabond. 2 x 2 gauze was then placed over the wound covered with Tegaderm. The patient was then turned supine onto a hospital bed. The patient was extubated and taken to PACU in stable condition. The patient tolerated the procedure well and no complications occurred. Estimated blood loss for the entire surgery was 20 mL. No instrumentation was utilized in this case. No dural tear occurred in this case. Neuromonitoring was utilized and all potentials stayed at baseline. I was present for the entirety of the case and performed the surgery myself. Surgical Findings: See operative note Complications Complications: No
--- NOTE | 2025-04-28 15:31 | PCM.POST.ANE ---
Anesthesia: Postop Eval I Current Vital Signs Temperature: 97.1 F Pulse Rate: 96 Blood Pressure: 155/80 Respiratory Rate: 20 Pulse Ox: 94 Oxygen Delivery Method: Nasal Cannula Oxygen Flow Rate (L/min): 4 Assessment Airway patent: Yes Spontaneous unlabored respirations: Yes Mental status: Asleep nausea: No Vomiting: No Anesthesia Complication: No Fluid Hydration Crystalloid volume administer (ml): 1,500 Total IV fluid infused: 1,500 Progress Note Anesthesia document: Postop Eval 1 completed: Yes
[2025-04-28] MEDS: HYDROcodone Bitartrate/Apap 5/325 Tablet PO (17:13)
[2025-04-28] MEDS: Erythromycin Base 1 OPTH.TUBE 1 APPLIC LEFT EYE (17:33)
--- NOTE | 2025-04-28 18:22 | POSTOPAN2_ITS ---
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 Spontaneous unlabored Yes 04/28/25 15:33 QUALITY ASSURANCE ASSISTANT.SHOF respirations Mental status Asleep 04/28/25 15:33 QUALITY ASSURANCE ASSISTANT.SHOF nausea No 04/28/25 15:33 QUALITY ASSURANCE ASSISTANT.SHOF Vomiting No 04/28/25 15:33 QUALITY ASSURANCE ASSISTANT.SHOF Anesthesia Postop Eval I: Fluid Summary Crystalloid volume administer 1,500 04/28/25 15:34 QUALITY ASSURANCE ASSISTANT.SHOF (ml) Colloids volume administered ( ml) Blood Product volume administered (ml) Total IV fluid infused 1,500 04/28/25 15:34 QUALITY ASSURANCE ASSISTANT.SHOF Anesthesia Postop Eval I: Summary Notes Anesthesia Complication No 04/28/25 15:34 QUALITY ASSURANCE ASSISTANT.SHOF Anesthesia Complication Comment: Post-operative progress note Anesthesia: Postop Eval II Evaluation Mental status: Awake Pain Level: 1 nausea: No Vomiting: No Progress Note Post-operative progress note: Patient complaining of irritation in the left eye. It is red and irritated. I have ordered erythromycin ointment as needed to left cornea. Complications Anesthesia Complication: No
--- NOTE | 2025-04-28 18:22 | PCM.POSTANE2 ---
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 Spontaneous unlabored Yes 04/28/25 15:33 SENIOR FACILITIES MANAGER.SHOF respirations Mental status Asleep 04/28/25 15:33 SENIOR FACILITIES MANAGER.SHOF nausea No 04/28/25 15:33 SENIOR FACILITIES MANAGER.SHOF Vomiting No 04/28/25 15:33 SENIOR FACILITIES MANAGER.SHOF Anesthesia Postop Eval I: Fluid Summary Crystalloid volume administer 1,500 04/28/25 15:34 SENIOR FACILITIES MANAGER.SHOF (ml) Colloids volume administered ( ml) Blood Product volume administered (ml) Total IV fluid infused 1,500 04/28/25 15:34 SENIOR FACILITIES MANAGER.SHOF Anesthesia Postop Eval I: Summary Notes Anesthesia Complication No 04/28/25 15:34 SENIOR FACILITIES MANAGER.SHOF Anesthesia Complication Comment: Post-operative progress note Anesthesia: Postop Eval II Evaluation Mental status: Awake Pain Level: 1 nausea: No Vomiting: No Progress Note Post-operative progress note: Patient complaining of irritation in the left eye. It is red and irritated. I have ordered erythromycin ointment as needed to left cornea. Complications Anesthesia Complication: No
== END 2025-04-28 17:55 | disposition home or self-care (01) ==
LOC: SDC 09:39 → AC 09:40
PROVIDERS: Anesthesiology; PCP Nurse Practitioner Adult Health; Referring Provider Orthopaedic Surgery Orthopaedic Surgery of the Spine; Visit Provider Orthopaedic Surgery Orthopaedic Surgery of the Spine
PROC: 0SB24ZZ Excision of Lumbar Vertebral Disc, Percutaneous Endoscopic Approach (ICD-10-PCS; CPT 62287; principal; 2025-04-28 11:30)
DX: M54.16 Radiculopathy, lumbar region (principal); F17.210 Nicotine dependence, cigarettes, uncomplicated; Z79.899 Other long term (current) drug therapy
CPT/HCPCS: 63030; 36415; 72100; 76000; 81025; 82962; 83036; 83735; 85610; 85730; 86703; 86706; 86708; 86803; 86850; 86900; 86901; 87081; 93005; A4216; J2405; J3475